=== PATIENT | female | born 2005 | race American Indian/Alaskan Native ===

== ENCOUNTER 2024-11-06 01:31 | Emergency (ER) | payer MEDICAID, SELFPAY ==
[2024-11-06 01:47] VITALS: BP 125/77; PULSE 88; RESP 19; TEMP 37.1; O2SAT 98
[2024-11-06] MEDS: DiphenhydrAMINE 25 MG CAPSULE 50 MG PO (02:27)
--- NOTE | 2024-11-06 05:40 | EDNOTE_ITS ---
ED Skin Abcess FB-RME/HPI General Chief complaint: Skin/Abscess/Foreign Body Stated complaint: INSECT BITE RIGHT ARM Time Seen by Provider: 11/06/24 01:54 Arrival date/time: 11/06/24 01:31 19F with no significant PMH presents to ED with R elbow insect bite and itchiness. Patient denies SOB. Patient is and just wanted to be evaluated. Limitations: no limitations Related Data Home Medications ?Medication ?Instructions ?Recorded ?Confirmed No Known Home Medications 11/04/2305/21 Allergies Allergy/AdvReac Type Severity Reaction Status Date / Time No Known Allergies Allergy Verified 04/18/21 14:38 Review of Systems Review of Systems Systems Reviewed: All systems reviewed, normal except as documented Constitutional Constitutional: Reports system reviewed and no additional complaints, except as documented, Denies fever(s) and Denies headache(s) ENT Ears, Nose, Mouth, and Throat: Denies disequilibrium and Denies headache(s) Cardiovascular Cardiovascular: Reports system reviewed and no additional complaints, except as documented, Denies chest pain and Denies dyspnea Respiratory Respiratory: Reports system reviewed and no additional complaints, except as documented, Denies cough and Denies dyspnea Gastrointestinal Gastrointestinal: Reports system reviewed and no additional complaints, except as documented, Denies abdominal pain, Denies nausea and Denies vomiting Integumentary/Breasts Skin/Breast: Reports as per HPI, Reports pruritus and Reports rash Neurologic Neurologic: Reports system reviewed and no additional complaints, except as documented, Denies confusion, Denies disequilibrium and Denies headache(s) Psychiatric Psychiatric: Denies confusion Past Medical History Past Medical History CARDIAC: Negative Congestive Heart Failure RESPIRATORY: Negative Chronic Obstructive Pulmonary Disease (COPD) GENITOURINARY: Negative Renal Disease ENDOCRINE: Negative Diabetes Mellitus Type 1 or Diabetes Mellitus Type 2 Social History SMOKING STATUS: Never smoker ED Exam General Limitations: Present no limitations General appearance: Present alert and in no apparent distress Head Head exam: Present atraumatic Eye Eye exam: Present normal appearance, PERRL and EOMI ENT ENT exam: Present normal exam, normal oropharynx and mucous membranes moist Neck Neck exam: Present normal inspection, full ROM and trachea midline Chest Chest inspection: Present normal inspection and symmetric chest wall rise Respiratory Respiratory exam: Present normal lung sounds bilaterally Cardiovascular Cardiovascular exam: Present regular rate, normal rhythm and normal heart sounds Abdominal Exam Abdominal exam: Present soft and normal bowel sounds Extremities Exam Extremities exam: Present full ROM Expanded Upper Extremity Exam Elbow exam: Present full ROM and erythema (2 cm on R side around insect bite alma) Back Exam Back exam: Present normal inspection and full ROM Neurological Exam Neurological exam: Present alert, oriented X3 and CN II-XII intact Psychiatric Psychiatric exam: Present normal affect and normal mood Skin Skin exam: Present warm, dry, intact and normal color Course Quality Measures none Orders Category Date Time Status DiphenhydrAMINE [Benadryl] Med 11/06/24 01:55 Discontinued 50 mg PO X1 ONE Vital Signs Vital signs: Vital Signs Temperature 98.7 F 11/06/24 01:47 Pulse Rate 88 11/06/24 01:47 Respiratory Rate 19 11/06/24 01:47 Blood Pressure 125/77 11/06/24 01:47 Pulse Oximetry (%) 98 11/06/24 01:47 Oxygen Delivery Method Room Air 11/06/24 01:47 O2 at 98% on RA and WNLs Skin / Abscess / Foreign Body MDM Narrative MDM Narrative:: 19F with no significant PMH presents to ED with R elbow insect bite and itchiness. Patient denies SOB. Patient is and just wanted to be evaluated. Physical exam reveals 2 cm area or redness and swelling around bite alma on R elbow. Clear lungs. Patient is afebrile, calm, and alert. Meds and phone counselor given. Patient data External records reviewed:: [facility] previous records Clinical information provided by:: patient Social determinants that could affect healthcare access:: none Patient has the following chronic illnesses:: none How is presenting disease/condition affected by chronic disease/condition?: no chronic disease Evaluation data The following diagnostics were reviewed and interpreted by me:: other (specify) (none) Lab and/or radiology exams considered but not ordered:: not ordered Interpretation Summary: n/a Medications / Prescriptions Medications or Prescriptions considered but not ordered:: ordered Medication administrations:: Medication Administration History Discontinued Medications Diphenhydramine HCl (Diphenhydramine 25 Mg Capsule) 50 mg PO X1 ONE Stop: 11/06/24 01:56 Last Admin: 11/06/24 02:27 Dose: 50 mg Documented By: CVL above Consultations Consultation(s) initiated? (list below): No Diagnosis Skin/Abscess Differential Diagnosis: abscess of skin or subcutaneous tissue, viral exanthem, dermatophytosis, urticaria, herpes zoster, allergic reaction to drug, cellulitis, eczema, insect bites, impetigo and contact dermatitis Most likely diagnosis given after review of the tests above:: insect bite Admission Indicated Admission indicated?: not indicated Admission Request Was there a request for admission?: No Disposition Plan Disposition Plan: Discharge Discharge Attestation Discharge Attestation: The patient and all family members were given an opportunity to ask questions and understood the discharge instructions. Discharge instructions specifically effects, indications for sooner follow up or return to the emergency department, and the expected course of current diagnosis. Patient condition: Stable Discharge Plan Plan Patient Disposition: HOME (Self Care) Disposition Comment: Stable Prescriptions/Referrals Prescriptions/Med Rec: No Action No Known Home Medications Problem List Clinical Impression: Insect bites Patient/Caregiver Discharge Instructions Education Materials: ED Insect Bite Additional Instructions: Please follow-up with PCP within 24-48 hours and return immediately if symptoms worsen. Print Language: Icelandic Stand Alone Forms: Patient Portal Info Letter NAVNEET/SOHAIL Supervising Physician NAVNEET/SOHAIL Supervising Physician: Dr. Lane
== END 2024-11-06 02:30 | disposition home or self-care (01) ==
LOC: SERX 04:38
PROVIDERS: Emergency Provider Emergency Medicine; PCP Physician Assistant
DX: O9A.219 Injury, poisoning and certain other consequences of external causes complicating pregnancy, unspecified trimester (principal); S50.361A Insect bite (nonvenomous) of right elbow, initial encounter; W57.XXXA Bitten or stung by nonvenomous insect and other nonvenomous arthropods, initial encounter
CPT/HCPCS: 99282; A9270

== ENCOUNTER 2024-12-01 23:17 | Emergency (ER) | payer MEDICAID, SELFPAY ==
[2024-12-01 23:19] VITALS: BMI 35.5
[2024-12-01 23:47] VITALS: BP 128/83; PULSE 80; RESP 16; TEMP 36.7; O2SAT 99
--- NOTE | 2024-12-02 | XR_ITS ---
Examination: Complete OB ultrasound, less than 14 weeks, transabdominal Date and time of exam: December 02, 2024 0114 hours INDICATIONS: Months of vaginal bleeding today Technique: Obstetrical ultrasound images less than 14 weeks performed via transabdominal imaging Findings: A normal shaped single intrauterine gestation is present in the uterus. pole 1.6 cm corresponds to 8 weeks 0 days gestational age. Cardiac motion 176 BPM Ultrasonographic survey of visible and placental structures unremarkable. Amniotic fluid volume appears appropriate for this estimated gestational age. Right ovary 3.8 cm arterial flow Left ovary obscured by bowel gas IMPRESSION: Viable intra uterine gestation 8 weeks 0 days.
--- NOTE | 2024-12-02 00:08 | EDNOTE_ITS ---
ED OB Contraction Preg RMI/HPI General Chief complaint: Vaginal Bleeding Stated complaint: VAGINAL BLEEDING AND , LMP 09/26/24 Time Seen by Provider: 12/01/24 23:35 Arrival date/time: 12/01/24 23:17 Limitations: no limitations RME / HPI RME / HPI Narrative: 19-year-old female with no reported past medical history presents for evaluation of vaginal bleeding x 1 hour. Patient describes it as bright red blood that covered her toilet paper when she went to the bathroom. Patient reports onset of sharp, suprapubic cramping x 3-hour prior to arrival. Denies chest pain, nausea, vomiting, dysuria, shortness of breath, fever. Patient reports x 2 positive home test and last LNMP 09/26/2024. A1. Consistency: intermittent Related Data Home Medications ?Medication ?Instructions ?Recorded ?Confirmed No Known Home Medications 11/04/2311/26 Allergies Allergy/AdvReac Type Severity Reaction Status Date / Time No Known Allergies Allergy Verified 12/10/24 13:36 Review of Systems Constitutional Constitutional: Denies body ache(s), Denies chills, Denies fever(s) and Denies headache(s) Eyes Eyes: Denies blurry vision and Denies change in vision ENT Ears, Nose, Mouth, and Throat: Denies dizziness, Denies headache(s) and Denies neck pain Cardiovascular Cardiovascular: Denies chest pain, Denies dyspnea, Denies irregular heart rhythm, Denies leg edema and Denies palpitations Respiratory Respiratory: Denies cough, Denies dyspnea and Denies hemoptysis Gastrointestinal Gastrointestinal: Denies abdominal pain, Denies change in stool character, Denies cramping, Reports nausea and Denies vomiting Genitourinary Genitourinary: Reports abnormal vaginal bleeding, Denies dysuria, Reports hemat uria and Denies vaginal discharge Musculoskeletal Musculoskeletal: Denies back pain, Denies neck pain, Denies numbness, Denies stiffness and Denies tingling Integumentary/Breasts Skin/Breast: Denies lesions and Denies rash Neurologic Neurologic: Denies dizziness, Denies headache(s), Denies numbness and Denies tingling Endocrine Endocrine: Denies palpitations Past Medical History Past Medical History NEUROLOGIC: Negative Cerebrovascular Accident, Transient Ischemic Attacks (TIA), Dementia, Alzheimer's Disease or Seizures CARDIAC: Negative Myocardial Infarction, Congestive Heart Failure or Hypertension RESPIRATORY: Negative Chronic Obstructive Pulmonary Disease (COPD), Asthma, Bronchitis, Emphysema, Pneumonia, Cough, Sputum Production, Wheezing, Chest Deformities, Smoking, Smoking Cessation Counseling, Smoking Exposure or Tobacco Use GASTROINTESTINAL: Negative Liver Cancer, Hepatitis, Cirrhosis, Pancreatic Cancer, Pancreatitis, Celiac Disease, Gall Bladder Disease, Crohn's Disease, Obstructive Bowel or Hiatal Hernia GENITOURINARY: Negative Renal Disease, Kidney Stones, Polycystic Kidney Disease, Neurogenic Bladder or Inguinal Hernia REPRODUCTIVE: Positive Previous Pregnancies; Negative Genital Herpes MUSCULOSKELETAL: Negative Muscular Dystrophy, Myasthenia Gravis, Marfan's Syndrome, Bone Cancer or Gout ENT: Negative Cataracts, Glaucoma, Blind or Retinal Detachment ENDOCRINE: Negative Diabetes Mellitus Type 1, Diabetes Mellitus Type 2 or Syndrome of Inappropriate Antidiuretic Hormone (SIADH) HEMATOLOGIC: Negative Anemia, Leukemia or Hemophilia PSYCHO/SOCIAL: Negative Schizophrenia, Recreational Drug Use, Depression, Anxiety or Behavior Problems OTHER HISTORY: Negative Hospitalization, Autoimmune Disease, Down Syndrome, Autism, Chicken Pox, Hepatitis A, Hepatitis B, Hepatitis C or Cancer Social History SMOKING STATUS: Never smoker SECOND HAND EXPOSURE: No ED Exam General Limitations: Present no limitations General appearance: Present alert and in no apparent distress Head Head exam: Present atraumatic and normocephalic Eye Eye exam: Present normal appearance and EOMI ENT ENT exam: Present normal exam and normal oropharynx Neck Neck exam: Present normal inspection and full ROM Chest Chest inspection: Present normal inspection and symmetric chest wall rise Respiratory Respiratory exam: Present normal lung sounds bilaterally; Absent respiratory distress or wheezes Cardiovascular Cardiovascular exam: Present regular rate and JVD Abdominal Exam Abdominal exam: Present soft; Absent distention or tenderness External exam: Present normal external exam Speculum exam: Present normal speculum exam and other (Cervical os is closed. No gross blood in vaginal canal.); Absent vaginal discharge, cervical discharge, vaginal bleeding or tissue Extremities Exam Extremities exam: Present normal inspection and full ROM Back Exam Back exam: Present normal inspection and full ROM; Absent CVA tenderness (R) or CVA tenderness (L) Neurological Exam Neurological exam: Present alert Psychiatric Psychiatric exam: Present normal affect Skin Skin exam: Present warm, dry and normal color Course Quality Measures none Orders Category Date Time Status Pelvic Exam X1 Care 12/02/24 02:32 Completed US OB <= 14 weeks fetus Stat Exams 12/02/24 00:00 Completed ABO/RH Type Stat Lab 12/01/24 23:58 Completed Beta HCG,Quantitative Stat Lab 12/01/24 23:58 Completed CBC Stat Lab 12/01/24 23:58 Completed CMP [Comprehensive Metabolic Panel] Stat Lab 12/01/24 23:58 Completed HCG,Qualitative Serum Stat Lab 12/02/24 00:25 Completed UA [Urinalysis] Stat Lab 12/02/24 00:22 Completed Acetaminophen Tab [Tylenol Tab] Med 12/01/24 23:58 Discontinued 325 mg PO X1 ONE Vital Signs Vital signs: Vital Signs Temperature 98.0 F 12/01/24 23:47 Pulse Rate 80 12/01/24 23:47 Respiratory Rate 16 12/01/24 23:47 Blood Pressure 128/83 12/01/24 23:47 Pulse Oximetry (%) 99 12/01/24 23:47 Oxygen Delivery Method Room Air 12/01/24 23:47 Pulse ox 99% on room air, within normal limits. Vaginal Bleeding MDM Narrative MDM Narrative: Very pleasant, nontoxic-appearing 19-year-old female presented for vaginal bleeding in the setting of positive home test x 1 month ago. Vital signs reassuring. Workup today showed live intrauterine with appropriate beta-hCG therefore lower concern for ectopic . Patient h emoglobin slightly below normal but not within range requiring emergent blood transfusion at this time. Pelvic exam performed by myself with nursing staff present for waiter/waitress formal showed closed cervical os therefore less concern for cervical insufficiency at this time. Patient afebrile and nontoxic-appearing therefore less concern for septic miscarriage at this time. Patient ultimately discharged with plan for close follow-up with OB within the week. Return precautions were provided. I discussed extensively the results of today's workup with the patient and her partner. Patient data External records reviewed:: [facility] previous records Clinical information provided by:: patient and spouse Social determinants that could affect healthcare access:: none Patient has the following chronic illnesses:: None reported. How is presenting disease/condition affected by chronic disease/condition?: no chronic disease Evaluation data The following diagnostics were reviewed and interpreted by me:: lab results and radiology exam(s) Lab and/or radiology exams considered but not ordered:: Considered not ordered. Interpretation Summary: Transvaginal ultrasound shows live intrauterine with heart rate of 176. Beta-hCG today greater than 10,000 therefore less concern for ectopic . UA showed no signs of infection pointing away from UTI. Patient mildly anemic without evidence of gross hemorrhage requiring blood transfusion at this time. No gross electrolyte abnormality or evidence of endorgan damage. Medications / Prescriptions Medications or Prescriptions considered but not ordered:: Rx given. Medication administrations:: Medication Administration History Discontinued Medications Acetaminophen (Acetaminophen 325 Mg Tablet) 325 mg PO X1 ONE Stop: 12/01/24 23:59 Last Admin: 12/02/24 00:13 Dose: 325 mg Documented By: LAUREN Rx given. Consultations Consultation(s) initiated? (list below): No Diagnosis Vaginal Bleeding Differential Diagnosis: missed , threatened , dysfunctional uterine bleeding, menometrorrhagia, incomplete , ectopic without intrauterine and vaginal bleeding Most likely diagnosis given after review of the tests above:: Threatened . Admission Indicated Admission indicated?: not indicated Admission Request Was there a request for admission?: No Disposition Plan Disposition Plan: Discharge Discharge Attestation Discharge Attestation: The patient and all family members were given an opportunity to ask questions and understood the discharge instructions. Discharge instructions specifically effects, indications for sooner follow up or return to the emergency department, and the expected course of current diagnosis. Patient condition: Stable Discharge Plan Plan Patient Disposition: HOME (Self Care) Disposition Comment: stable Prescriptions/Referrals Prescriptions/Med Rec: No Action No Known Home Medications Referrals: Josef Villarreal PA-C [Primary Care Provider] - In 1 week Problem List Clinical Impression: Vaginal bleeding, Threatened Impression comment: Follow-up with OB within the next 24 to 48 hours for reevaluation. Beta-hCG today greater than 10,000. Live IUP on ultrasound measuring 8weeks 0days. Take Tylenol as needed for suprapubic cramping. Return to the ED if your symptoms worsen or change. Patient/Caregiver Discharge Instructions Education Materials: ED Abdominal Pain, Early , ED Possible Miscarriage ... Print Language: Hungarian Stand Alone Forms: Kiki Award Info., Patient Portal Info Letter NAVNEET/SOHAIL Supervising Physician NAVNEET/SOHAIL Supervising Physician: Dr. Mackay
[2024-12-02] MEDS: ACETAMINOPHEN 325 MG TABLET PO (00:13)
[2024-12-02 00:46] LABS: Collection Type, Urine Clean Catch; WBC,Urine 0 /hpf (0-5)
[2024-12-02 00:47] LABS: Basophils # (Auto) 0.1 Thou/mm3 (0.0-0.2); Basophils % (Auto) 0 % (0-2.5); Eosinophils # (Auto) 0.2 Thou/mm3 (0.0-0.5); Eosinophils % (Auto) 1 % (0-10); Hematocrit 35.4 % (36.0-46.0); Hemoglobin 11.9 g/dL (12.0-16.0); Immature Granulocytes % (Auto) 0 % (0-0); Immature Granulocytes Auto 0.03 Thou/mm3 (0.00-0.00); Lymphocytes # (Auto) 2.5 Thou/mm3 (1.0-4.8); Lymphocytes % (Auto) 22 % (10-50); Mean Corpuscular HGB Conc 33.6 g/dl (31.0-37.0); Mean Corpuscular Hemoglobin 26.3 pg (25.0-35.0); Mean Corpuscular Volume 78 fL (80-100); Monocytes # (Auto) 0.8 Thou/mm3 (0.0-0.8); Monocytes % (Auto) 7 % (0-12); Neutrophils # (Auto) 7.8 Thou/mm3 (1.8-7.7); Neutrophils % (Auto) 69 % (37-80); Nucleated Red Blood Cell % 0 /100 WBC (0); Platelet Count 415 Thou/mm3 (140-440); RDW Standard Deviation 39.1 fL (36.4-46.3); Red Blood Count 4.52 Miln/mm3 (4.00-5.20); White Blood Count 11.3 Thou/mm3 (4.5-11.0)
[2024-12-02 01:16] LABS: Bacteria,Urine Rare; Bilirubin,Urine Negative (Negative); Blood,Urine Trace (Negative); Clarity,Urine Clear (Clear/Hazy); Color,Urine Lt-Yellow (Lt Yel-Yel); Glucose, Urine Negative (Negative); Ketones,Urine Negative (Negative); Leukocyte Esterase,Urine Negative (Negative); Nitrite,Urine Negative (Negative); PH,Urine 6.5 (5.0-7.0); Protein,Urine Negative (Neg - Trace); RBC,Urine 3 /hpf (0-3); Specific Gravity,Urine 1.016 (1.001-1.035); Squamous Epithelial Cell,Urine 2 /hpf (0-5); Urobilinogen,Urine Negative mg/dL (0.0-1.0)
[2024-12-02 01:24] LABS: Alanine Aminotransferase 15 U/L (10-49); Albumin/Globulin Ratio 1.3 (1.2-2.2); Alkaline Phosphatase 76 U/L (46-116); Anion Gap 8 (7-16); Aspartate Amino Transferase 18 U/L (0-34); BUN/Creatinine Ratio 10 Ratio (12-20); Bilirubin,Total 0.2 mg/dL (0.3-1.2); Blood Urea Nitrogen 6 mg/dL (9-23); Calcium 9.4 mg/dL (8.3-10.6); Calcium (Corrected) 9.4 mg/dL (8.5-10.1); Carbon Dioxide 25.4 mMol/L (20.0-31.0); Chloride 105 mMol/L (98-107); Creatinine (Component) 0.6 mg/dL (0.6-1.3); Estimated Creatinine Clearance 178.3 mL/min (>60); Globulin 3.2 gm/dL (2.3-3.5); Glucose 129 mg/dL (74-106); Osmolality,Calculated 275 (275-295); Potassium 3.6 mMol/L (3.4-5.1); Sodium 138 mMol/L (136-145); Total Protein 7.2 gm/dL (5.7-8.2); eGFR > 60 See Note
[2024-12-02 01:40] LABS: HCG,Qualitative Serum Positive
[2024-12-02 01:51] LABS: Beta HCG,Quantitative > 10000 mIU/mL (<5.0)
[2024-12-02 01:56] VITALS: BP 122/81; PULSE 72; RESP 16; TEMP 37.2; O2SAT 100
--- NOTE | 2024-12-02 02:36 | PRELIM_ITS ---
Obstetric ultrasound (transabdominal ) with Doppler and wave Doppler spectral analysis. December 02, 2024 0114 hours Clinical history: vaginal bleed Technique: Real-time ultrasound was performed using Duplex scanning including arterial inflow, venous outflow, color and spectral Doppler analysis of both ovaries. Comparison: None Findings: There is an intrauterine gestation with a single live fetus of mean gestational age 8 weeks and 0 day (CRL= 1.6 cm). cardiac activity is present at heart rate of 176 beats per minute. The yolk sac measures 0.4 cm. The uterus measures 10.8 x 6.0 x 9.3 cm. The right ovary measures 3.8 x 2.0 x 2.9 cm and is unremarkable. Normal blood flow in the right ovary with normal wave Doppler spectral analysis. The left ovary was not visualized There is no free fluid in the pelvis. Impression: Intrauterine gestation with a single live fetus of mean gestational age 8 weeks and 0 day. Report Electronically Signed By: Markus Green 12/02/2024 2:36:34 AM [EST]
[2024-12-02 03:22] VITALS: BP 115/51; PULSE 81; RESP 17; TEMP 36.6; O2SAT 98
== END 2024-12-02 03:23 | disposition home or self-care (01) ==
PROVIDERS: Physician Assistant; Emergency Provider Emergency Medicine; PCP Physician Assistant
DX: O20.0 Threatened abortion (principal); Z3A.08 8 weeks gestation of pregnancy
CPT/HCPCS: 36415; 76801; 80053; 81001; 84702; 84703; 85025; 86900; 86901; 99284; A9270

== ENCOUNTER 2025-01-08 10:25 | Outpatient (AMB) | payer MEDICAID, SELFPAY ==
--- NOTE | 2025-01-08 10:42 | OBCLNT_ITS ---
Vital Signs 01/08/25 10:52 Height 1.65 m Height Method Stated Weight 122.016 kg Weight Measurement Method Standing Scale BMI 44.7 BP 120/81 Blood Pressure Source Automatic Cuff Blood Pressure Location Left Upper Arm Position Sitting Respiration 81 H Pulse 16 L Pulse Source Monitor Temp 99.2 F Temp Source Oral Pulse Oximetry (%) 98 Oxygen Delivery Method Room Air Allergies/Home Meds Allergies & Medications Allergies No Known Allergies Allergy (Verified 01/08/25 10:53) Medication Reconciliation No Known Home Medications 11/04/23 [History Confirmed 01/08/25] Intake Visit Data Collection New Patient or Established: Established Patient (seen at [facility] within 3 years) Reason for Visit:: - Routine visit at 33 weeks and 2 days gestation Seen by Clinical Staff ONLY (RN/MA): No Cocktail Server Required: No Do You Feel Safe at Home: Yes Authorities Contacted: N/A PCP or OBGYN visit in last 3 months: Yes Hx Now: Yes Are you currently on any form of Control: No Pain Present Currently: No Pain Scale Used: Sosa-Pichardo/Numerical Pain scale:: 0 Smoking Status Smoking Status: Never smoker Questionnaires Covid-19 Vaccine Questionnaire Has patient been vacinated for Covid-19 Have you been vacinated for Covid-19: No PHQ-9 PHQ-2 Over the last 2 weeks, how often have you been bothered by any of the following problems? 1. Little interest or pleasure in doing things: not at all 2. Feeling down, depressed, or hopeless: not at all Total score: 0 PHQ-9 3. Trouble falling or staying asleep, or sleeping too much: Not at all 4. Feeling tired or having little energy: Not at all 5. Poor appetite or overeating: Not at all 6. Feeling bad about yourself - or that you are a failure or have let yourself or your family down: Not at all 7. Trouble concentrating on things, such as reading the newspaper or watching television: Not at all 8. Moving or speaking so slowly that other people could have noticed? - Or the opposite - being so fidgety or restless that you have been moving around a lot more than usual: not at all 9. Thoughts that you would be better off or of hurting yourself in some way: Not at all Total score: 0 Source: Developed by Drs. Levi Pickering, Laly Dasilva, Jeffry Alicia and colleagues, with an educational lucrecia from [employer]. 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 - Patient transferred care from Dr. Amaro to the current practice. - Finalized due date is February 26, based on maternal medicine ultrasound. 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 - Reports normal movement. No contractions/ LOF/VB, reports good FM No HOUSTON/VC/RUQ/Epig pain Care OB Visit Log OB Flowsheet Initial Weight: Not Recorded Date -?-?-?-?-?-?-?-?-?-?-?-?- EGA Weight BP Alb Glu CTX Pres Fundal ht FHR Mov Dilation Station Effacement Hx Notes Visit Note 12/10/24 -?-?-?-?-?-?-?-?-?-?-?-?- 10w 5d 123.094 kg 113/62 175 Mara Stockton, at 10 weeks 5 days gestation, presenting for initial visit with history of recent spotting and cramping. - Continue vitamins - Order comprehensive lab panel - Offer genetic screening for aneuploidy and sex determination - Patient expressed interest in geneti c screening - Schedule follow-up appointment in 4 we eks - Ultrasound images to be provided at ne xt visit - Clinical Data Management Director on risks of vaping during preg elen and recommend cessation - Obtain detailed cardiac history and re cords of heart surgery - Consider cardiology consultation for p regnancy management if indicated based on cardiac history 01/08/25 -?-?-?-?-?-?-?-?-?-?-?-?- 14w 6d 122.016 kg 120/81 Kelsy Stewart, at 33w2d, presents for routine care. Transferred from Dr. Amaro. Due date confirmed as 02/26/2025 by MFM ultrasound. Reports good movement. 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 No CTX/LOF/VB. heart rate is 146 bpm. Plan: Repeat scheduled for 02/19/2025 at 12:30 PM Growth ultrasound with MFM on 01/31/2025 Follow-up in 2 weeks Begin weekly visits thereafter Reviewed signs of labor and when to present to L&D ROSIE Calculator Estimated Delivery Date Method Current WG Current Estimate 07/03/25 LMP (Certain) 16w 4d Other Estimates 07/06/25 Ultrasound #1 16w 1d Exam General General Appearance: alert, in no apparent distress and healthy appearing Head Head exam: atraumatic Neck Neck exam: Present normal inspection and trachea midline Chest Chest inspection: Present normal inspection and symmetric chest wall rise External exam: Present normal external exam; Absent tenderness Neuro Neurological exam: Present oriented X3 Psych Psychiatric exam: Present normal affect and normal mood Office Procedures OB Clinic LOC & Office Proc's Nursing/Assessment Patient Status: Established Patient OB Clinic Nursing Assessment: Medication Reconciliation, Update PMH in EMR and Vital Signs OB Clinic Coordination of Care: Complex Care and Chronic Disease 1-5, Consent,records obtained, informed consent, Education Simp Pt/Fam, Results/Orders obtained and Staff clarify orders Special Needs: Heart tones Established Patient Charge Established Patient Point Assignment: 120 Established Patient Point Charge: EP Level 4 (120-155) Bedside Ultrasounds US Transabdominal <14 weeks at bedside: Yes Assessment & Plan Diagnosis / Problem List (1) Supervision of high risk , unspecified, first trimester: Status: Acute (2) Obesity affecting in first trimester: Status: Acute Plan Problem List - , 33 weeks and 2 days - Cystic fibrosis carrier status Assessment - 1 para 1 at 33 weeks and 2 days gestation - Scheduled for repeat on February 19 at 12:30 PM - Cystic fibrosis carrier status confirmed for patient, father of child tested negative - heart rate 146 bpm, noted as normal Plan - Repeat scheduled for February 19 at 12:30 PM - Growth ultrasound with maternal medicine on January 31 - Follow-up appointment in 2 weeks - Weekly appointments to begin after the next follow-up Educated the patient on labor signs, including regular contractions, lower back pain, and changes in vaginal discharge. Advised avoiding heavy lifting and getting adequate rest. Instructed to contact the office immediately if any signs occur. Discussed the importance of a balanced diet rich in folic acid, iron, and calcium, and provided a list of recommended and to-avoid foods. Emphasized avoiding high-sugar foods to reduce gestational diabetes risk. Encouraged hydration and frequent, small meals for energy..
[2025-01-08 10:52] VITALS: BP 120/81; PULSE 16; RESP 81; TEMP 37.3; O2SAT 98; BMI 44.7
== END 2025-01-08 11:10 | disposition home or self-care (01) ==
LOC: HODSOBC 10:25
PROVIDERS: PCP Physician Assistant; Referring Provider Physician Assistant; Supervising Provider Obstetrics & Gynecology; Visit Provider Obstetrics & Gynecology
DX: O09.623 Supervision of young multigravida, third trimester (principal); O09.293 Supervision of pregnancy with other poor reproductive or obstetric history, third trimester; O09.893 Supervision of other high risk pregnancies, third trimester; Z3A.33 33 weeks gestation of pregnancy; O34.219 Maternal care for unspecified type scar from previous cesarean delivery; O99.213 Obesity complicating pregnancy, third trimester; O99.891 Other specified diseases and conditions complicating pregnancy; Z14.1 Cystic fibrosis carrier
CPT/HCPCS: 76801; 99214; G0463

== ENCOUNTER 2025-02-07 11:43 | Outpatient (AMB) | payer MEDICAID, SELFPAY ==
[2025-02-07 12:06] VITALS: BP 121/82; PULSE 78; RESP 18; TEMP 36.2; O2SAT 98; BMI 45.4
--- NOTE | 2025-02-07 12:06 | OBCLNT_ITS ---
Vital Signs 02/07/25 12:06 Height 1.65 m Height Method Stated Weight 123.831 kg Weight Measurement Method Standing Scale BMI 45.4 BP 121/82 Blood Pressure Source Automatic Cuff Blood Pressure Location Left Upper Arm Position Sitting Respiration 18 Pulse 78 Pulse Source Monitor Temp 97.2 F Temp Source Oral Pulse Oximetry (%) 98 Oxygen Delivery Method Room Air Allergies/Home Meds Allergies & Medications Allergies No Known Allergies Allergy (Verified 02/07/25 12:16) Medication Reconciliation No Known Home Medications 11/04/23 [History Confirmed 02/07/25] Intake Visit Data Collection New Patient or Established: Established Patient (seen at [facility] within 3 years) Reason for Visit:: OBC Seen by Clinical Staff ONLY (RN/MA): No M1 Armor Crewman Required: No Do You Feel Safe at Home: Yes Authorities Contacted: N/A PCP or OBGYN visit in last 3 months: Yes Date of Last PCP or OBGYN visit: 02/07/25 Hx Now: No Are you currently on any form of Control: No Pain Present Currently: No Pain Scale Used: Sosa-Pichardo/Numerical Pain scale:: 0 Smoking Status Smoking Status: Never smoker Questionnaires Covid-19 Vaccine Questionnaire Has patient been vacinated for Covid-19 Have you been vacinated for Covid-19: Yes PHQ-9 PHQ-2 Over the last 2 weeks, how often have you been bothered by any of the following problems? 1. Little interest or pleasure in doing things: not at all 2. Feeling down, depressed, or hopeless: not at all Total score: 0 PHQ-9 3. Trouble falling or staying asleep, or sleeping too much: Not at all 4. Feeling tired or having little energy: Not at all 5. Poor appetite or overeating: Not at all 6. Feeling bad about yourself - or that you are a failure or have let yourself or your family down: Not at all 7. Trouble concentrating on things, such as reading the newspaper or watching television: Not at all 8. Moving or speaking so slowly that other people could have noticed? - Or the opposite - being so fidgety or restless that you have been moving around a lot more than usual: not at all 9. Thoughts that you would be better off or of hurting yourself in some way: Not at all Total score: 0 If you checked off any problems, how difficult have these problems made it for you to do your work, take care of things at home, or get along with other people?: not difficult at all Source: Developed by Drs. Levi Pickering, Laly Dasilva, Jeffry Alicia and colleagues, with an educational lucrecia from [employer]. 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 No contractions, LOF, VB and reports good FM. Denies HOUSTON, VC, and epigastric pain. - Mara Stokcton is a female, Para 0010, at 19 weeks and 1 day gestation, presenting for routine care. - Estimated due date: July 03, 2025, based on last menstrual period of September 26, 2024. - Patient reports feeling a little bit of movement. - She denies experiencing anemia or related issues. - Patient confirms adherence to vitamin regimen. - Recent healthcare interactions: - Maternal appointment on January 31, 2025 - Upcoming ultrasound scheduled for February 26, 2025 Review of Systems Review of Systems Systems Reviewed: All systems reviewed, normal except as documented Care OB Visit Log OB Flowsheet Initial Weight: Not Recorded Date -?-?-?-?-?-?-?-?-?-?-?-?- EGA Weight BP Alb Glu CTX Pres Fundal ht FHR Mov Dilation Station Effacement Hx Notes Visit Note 12/10/24 -?-?-?-?-?-?-?-?-?-?-?-?- 10w 5d 123.094 kg 113/62 175 Mara Stockton, at 10 weeks 5 days gestation, presenting for initial visit with history of recent spotting and cramping. - Continue vitamins - Order comprehensive lab panel - Offer genetic screening for aneuploidy and sex determination - Patient expressed interest in geneti c screening - Schedule follow-up appointment in 4 we eks - Ultrasound images to be provided at ne xt visit - Willower on risks of vaping during preg elen and recommend cessation - Obtain detailed cardiac history and re cords of heart surgery - Consider cardiology consultation for p regnancy management if indicated based on cardiac history 01/08/25 -?-?-?-?-?-?-?-?-?-?-?-?- 14w 6d 122.016 kg 120/81 Kelsy Stewart, at 33w2d, presents for routine care. Transferred from Dr. Amaro. Due date confirmed as 02/26/2025 by [facility] ultrasound. Reports good movement. 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 No CTX/LOF/VB. heart rate is 146 bpm. Plan: Repeat scheduled for 02/19/2025 at 12:30 PM Growth ultrasound with MFM on 01/31/2025 Follow-up in 2 weeks Begin weekly visits thereafter Reviewed signs of labor and when to present to L&D 02/07/25 -?-?-?-?-?-?-?-?-?-?-?-?- 19w 1d 123.831 kg 121/82 at 19w1d with ROSIE 07/03/25 (LMP 09/26/24), presents for routine care. No CTX/LOF/VB. Reports minimal FM, denies HOUSTON/VC/epigastric pain. Taking vitamins, no issues with anemia. Recent [facility] visit on 01/31/25 completed. Upcoming anatomy US scheduled for 02/26/25. FHT: 148 bpm. Plan: Proceed with 02/26 anatomy scan at [facility]. Glucose test to be ordered. No follow-up until after ultrasound unless patient has new concerns. Reinforced FM monitoring and reviewed preeclampsia and labor precautions. ROSIE Calculator Estimated Delivery Date Method Current WG Current Estimate 07/03/25 LMP (Certain) 19w 6d Other Estimates 07/06/25 Ultrasound #1 19w 3d Exam General General Appearance: alert, in no apparent distress and healthy appearing Head Head exam: atraumatic Neck Neck exam: Present normal inspection and trachea midline Chest Chest inspection: Present normal inspection and symmetric chest wall rise External exam: Present normal external exam; Absent tenderness Neuro Neurological exam: Present oriented X3 Psych Psychiatric exam: Present normal affect and normal mood Office Procedures OB Clinic LOC & Office Proc's Nursing/Assessment Patient Status: Established Patient OB Clinic Nursing Assessment: Medication Reconciliation, Update PMH in EMR and Vital Signs OB Clinic Coordination of Care: Education Complex Pt/Fam, Consent,records obtained, informed consent, 4+ Authorizations needed, Lab and Imaging orders and Staff clarify orders Special Needs: Heart tones Established Patient Charge Established Patient Point Assignment: 135 Established Patient Point Charge: EP Level 4 (120-155) Assessment & Plan Diagnosis / Problem List (1) Supervision of high risk , unspecified, first trimester: Status: Acute (2) Obesity affecting in first trimester: Status: Acute Plan Problem List - , 19 weeks and 1 day Assessment 1 Para 0010 at 19 weeks and 1 day gestation presenting for routine care. Estimated due date is 07/03/2025 based on last menstrual period of 09/26/2024. Patient reports feeling movement. heart rate auscultated at 148 bpm, which is within normal range. Maternal appointment completed on January 31. No reported issues with nausea or anomagnesia. Patient is taking vitamins as recommended. Plan - Attend ultrasound appointment at [facility] on February 26 - Complete glucose test (order to be provided) - Follow up after February 26 ultrasound appointment - No 4-week follow-up appointment needed unless patient has concerns or questions 1. Progress Reviewed gestational age, growth, and heart rate. Planned frequent visits (every 2 weeks until 36 weeks, then weekly). 2. Instructed patient to monitor movements and report decreases immediately. 3. Testing Counseled on routine third-trimester labs per guidelines. Discussed potential need for ultrasound or monitoring based on risk factors. 4. Preeclampsia Precaution Educated on preeclampsia signs: severe headache, vision changes, right upper quadrant pain, sudden swelling. Advised urgent reporting of symptoms and discussed blood pressure monitoring if high risk. 5. Labor Precautions Reviewed labor signs: regular contractions, pelvic pressure, back pain, bleeding, or fluid leakage. Instructed to seek immediate care for these symptoms. 6. Lifestyle and Delivery Preparation Reinforced vitamins, nutrition, and safe activity. Discussed plan, pain management, and . Advised on labor preparation (e.g., hospital bag) and expectations. 7. Psychosocial Support Assessed emotional well-being and offered resources for mental health or parenting support.
== END 2025-02-07 12:06 | disposition home or self-care (01) ==
LOC: HODSOBC 11:43
PROVIDERS: PCP Physician Assistant; Referring Provider Physician Assistant; Supervising Provider Obstetrics & Gynecology; Visit Provider Obstetrics & Gynecology
DX: O09.892 Supervision of other high risk pregnancies, second trimester (principal); O99.212 Obesity complicating pregnancy, second trimester; O09.292 Supervision of pregnancy with other poor reproductive or obstetric history, second trimester; O34.219 Maternal care for unspecified type scar from previous cesarean delivery; Z3A.19 19 weeks gestation of pregnancy
CPT/HCPCS: 99214; G0463

== ENCOUNTER 2025-03-12 10:11 | Outpatient (AMB) | payer MEDICAID, SELFPAY ==
--- NOTE | 2025-03-12 10:22 | OBCLNT_ITS ---
Vital Signs 03/12/25 10:23 Height 1.65 m Height Method Measured Weight 126.269 kg Weight Measurement Method Standing Scale BMI 46.3 BP 123/79 Blood Pressure Source Automatic Cuff Blood Pressure Location Right Upper Arm Position Sitting Respiration 17 Pulse 86 Pulse Source Monitor Temp 98.4 F Temp Source Temporal Artery Scan Pulse Oximetry (%) 96 Oxygen Delivery Method Room Air Allergies/Home Meds Allergies & Medications Allergies No Known Allergies Allergy (Verified 03/12/25 10:23) Medication Reconciliation sod chloride-sod bicarb-hyaluronate sod-aloe 0.9 % nasal spray gel (Nasogel) 1 applic intranasal Q6H PRN dry nasal passages 5 days #30 mL 03/12/25 [Rx] Intake Visit Data Collection New Patient or Established: Established Patient (seen at [facility] within 3 years) Reason for Visit:: OBC Consent obtained for Telemed Visit: No Seen by Clinical Staff ONLY (RN/MA): No 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 1. Little interest or pleasure in doing things: not at all PHQ-9 8. Moving or speaking so slowly that other people could have noticed? - Or the opposite - being so fidgety or restless that you have been moving around a lot more than usual: not at all Source: Developed by Drs. Levi Pickering, Laly Dasilva, Jeffry Alicia and colleagues, with an educational lucrecia from [employer]. 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 - Continue vitamins - Order comprehensive lab panel - Offer genetic screening for aneuploidy and sex determination - Patient expressed interest in geneti c screening - Schedule follow-up appointment in 4 we eks - Ultrasound images to be provided at ne xt visit - Farm Operator on risks of vaping during preg elen and recommend cessation - Obtain detailed cardiac history and re cords of infant heart surgery - Consider cardiology consultation for p regnancy management if indicated based on cardiac history 01/08/25 -?-?-?-?-?-?-?-?-?-?-?-?- 14w 6d 122.016 kg 120/81 Kelsy Stewart, at 33w2d, presents for routine care. Transferred from Dr. Amaro. Due date confirmed as 02/26/2025 by [facility] ultrasound. Reports good movement. 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 No CTX/LOF/VB. heart rate is 146 bpm. Plan: Repeat scheduled for 02/19/2025 at 12:30 PM Growth ultrasound with MFM on 01/31/2025 Follow-up in 2 weeks Begin weekly visits thereafter Reviewed signs of labor and when to present to L&D 02/07/25 -?-?-?-?-?-?-?-?-?-?-?-?- 19w 1d 123.831 kg 121/82 at 19w1d with ROSIE 07/03/25 (LMP 09/26/24), presents for routine care. No CTX/LOF/VB. Reports minimal FM, denies HOUSTON/VC/epigastric pain. Taking vitamins, no issues with anemia. Recent MFM visit on 01/31/25 completed. Upcoming anatomy US scheduled for 02/26/25. FHT: 148 bpm. Plan: Proceed with 02/26 anatomy scan at [facility]. Glucose test to be ordered. No follow-up until after ultrasound unless patient has new concerns. Reinforced FM monitoring and reviewed preeclampsia and labor precautions. 03/12/25 -?-?-?-?-?--?-?-?-?-?-?-?- 23w 6d 126.269 kg 123/79 absent unknown 34 130 active , 23w6d No CTX/LOF/VB, good FM. Reports 5 episod es of epistaxis over past 6 wks, associated with lightheadedness. Exam shows dry nasal mucosa. MFM sono 02/26: normal anatomy, MVP 6.4cm, CL 4.97cm, posterior placenta. FHR 128?130. Plan: Start nasal spray q4h. Repeat GTT. F/u in 4 wks. If epistaxis persists >2?3 days, refer to PCP or ENT ROSIE Calculator Estimated Delivery Date Method Current WG Current Estimate 07/03/25 LMP (Certain) 23w 6d Other Estimates 07/06/25 Ultrasound #1 23w 3d Specific Issue/Plans - Ultrasound (02/26/2025): - Single intrauterine gestation - Largest vertical pocket: 6.4 cm - Posterior placenta - Cervix length: 4.97 cm - Ovaries: normal - Head and neck: normal - Anatomy survey: within normal limits Office Procedures OB Clinic LOC & Office Proc's Nursing/Assessment Patient Status: Established Patient OB Clinic Nursing Assessment: Medication Reconciliation, Update PMH in EMR and Vital Signs OB Clinic Coordination of Care: Complex Care and Chronic Disease 1-5, Education Complex Pt/Fam, Consent,records obtained, informed consent, Education Simp Pt/Fam and 4+ Authorizations needed Special Needs: Heart tones Established Patient Charge Established Patient Point Assignment: 150 Established Patient Point Charge: EP Level 4 (120-155) Assessment & Plan Diagnosis / Problem List (1) Hemorrhage from nose: Status: Acute (2) Obesity affecting : Status: Acute
[2025-03-12 10:23] VITALS: BP 123/79; PULSE 86; RESP 17; TEMP 36.9; O2SAT 96; BMI 46.3
== END 2025-03-12 10:53 | disposition home or self-care (01) ==
LOC: HODSOBC 10:11
PROVIDERS: PCP Obstetrics & Gynecology; Referring Provider Obstetrics & Gynecology; Supervising Provider Obstetrics & Gynecology; Visit Provider Obstetrics & Gynecology
DX: O09.892 Supervision of other high risk pregnancies, second trimester (principal); O99.212 Obesity complicating pregnancy, second trimester; O99.891 Other specified diseases and conditions complicating pregnancy; R04.0 Epistaxis; Z3A.23 23 weeks gestation of pregnancy
CPT/HCPCS: 99214; G0463

== ENCOUNTER 2025-04-22 17:59 | Observation (INO) | payer MEDICAID, SELFPAY ==
[2025-04-22] VITALS (9 sets, daily range): BP systolic 117–133; BP diastolic 57–87; PULSE 72–86; RESP 16–98; TEMP 36.6; BMI 46.8
--- NOTE | 2025-04-22 19:12 | XR_ITS ---
Examination: Complete OB ultrasound greater than 14 weeks Date and time of exam: April 22, 2025, 1938 hours INDICATIONS: Vaginal bleeding today Findings: Viable intrauterine single fetus with single amniotic sac presentation cephalic Cardiac motion 140 BPM Placenta posterior grade 2 no abruption Umbilical cord insertion seen Amniotic fluid adequate Ovaries obscured by the fetus. Composite estimated gestational age based on BPD, head circumference, abdominal circumference, femur length is 29 weeks 2 days Estimated weight 1314 g. Survey of intracranial anatomy, spinal anatomy, abdominal anatomy, four-chamber heart performed with no abnormalities identified. Impression: Viable intrauterine gestation cephalic presentation.
[2025-04-22 19:36] LABS: Collection Type, Urine Clean Catch
[2025-04-22 19:53] LABS: Bacteria,Urine 2+; Bilirubin,Urine Negative (Negative); Blood,Urine Negative (Negative); Clarity,Urine Clear (Clear/Hazy); Color,Urine Lt-Yellow (Lt Yel-Yel); Glucose, Urine Negative (Negative); Ketones,Urine Negative (Negative); Leukocyte Esterase,Urine Negative (Negative); Nitrite,Urine Negative (Negative); PH,Urine 7.0 (5.0-7.0); Protein,Urine Negative (Neg - Trace); RBC,Urine 3 /hpf (0-3); Specific Gravity,Urine 1.011 (1.001-1.035); Squamous Epithelial Cell,Urine 4 /hpf (0-5); Urobilinogen,Urine Negative mg/dL (0.0-1.0); WBC,Urine 10 /hpf (0-5)
== END 2025-04-22 22:25 | disposition home or self-care (01) ==
PROVIDERS: Admitting Provider Obstetrics & Gynecology; Visit Provider Obstetrics & Gynecology
DX: O46.93 Antepartum hemorrhage, unspecified, third trimester (principal); Z3A.29 29 weeks gestation of pregnancy; O26.893 Other specified pregnancy related conditions, third trimester; M54.50 Low back pain, unspecified; R10.9 Unspecified abdominal pain
CPT/HCPCS: 59025; 59899; 76805; 81001; A9270

== ENCOUNTER 2025-04-30 20:07 | Emergency (ER) | payer MEDICAID, SELFPAY ==
[2025-04-30 20:09] VITALS: BMI 42.9
[2025-04-30 20:16] VITALS: BP 131/81; PULSE 80; RESP 20; TEMP 37; O2SAT 96
--- NOTE | 2025-04-30 20:22 | PD.EDEAR ---
ED Ear RME/HPI General Chief complaint: Ear Stated complaint: LEFT EAR PAIN Time Seen by Provider: 04/30/25 20:20 Arrival date/time: 04/30/25 20:07 19F with no significant PMH presents to ED with 2 weeks of L ear pain. Patient denies URI symptoms. Limitations: no limitations Related Data Home Medications ?Medication ?Instructions ?Recorded ?Confirmed vitamins no.102-iron 90 1 cap PO QDAY 04/22/25 04/22/25 mg-folate 1 mg-dha 200 mg capsule Previous Rx's ?Medication ?Instructions ?Recorded sod chloride-sod 1 applic intranasal Q6H PRN dry 03/12/25 bicarb-hyaluronate sod-aloe 0.9 % nasal passages 5 days #30 mL nasal spray gel (Nasogel) [id number]-wcoyfstnx 3.5 4 drp otic (ear) QID 10 days #10 mL 04/30/25 mg-10,000 unit/mL-1 % ear drops,susp Allergies Allergy/AdvReac Type Severity Reaction Status Date / Time No Known Allergies Allergy Verified 04/22/25 19:15 Review of Systems Review of Systems Systems Reviewed: All systems reviewed, normal except as documented Constitutional Constitutional: Reports system reviewed and no additional complaints, except as documented, Denies fever(s) and Denies headache(s) ENT Ears, Nose, Mouth, and Throat: Reports as per HPI, Denies disequilibrium, Reports otalgia and Denies headache(s) Cardiovascular Cardiovascular: Reports system reviewed and no additional complaints, except as documented, Denies chest pain and Denies dyspnea Respiratory Respiratory: Reports system reviewed and no additional complaints, except as documented, Denies cough and Denies dyspnea Gastrointestinal Gastrointestinal: Reports system reviewed and no additional complaints, except as documented, Denies abdominal pain, Denies nausea and Denies vomiting Neurologic Neurologic: Reports system reviewed and no additional complaints, except as documented, Denies confusion, Denies disequilibrium and Denies headache(s) Psychiatric Psychiatric: Denies confusion Past Medical History Past Medical History NEUROLOGIC: Negative Cerebrovascular Accident, Transient Ischemic Attacks (TIA), Dementia, Alzheimer's Disease or Seizures CARDIAC: Negative Myocardial Infarction, Congestive Heart Failure or Hypertension RESPIRATORY: Negative Chronic Obstructive Pulmonary Disease (COPD), Asthma, Bronchitis, Emphysema, Pneumonia, Cough, Sputum Production, Wheezing, Chest Deformities, Smoking, Smoking Cessation Counseling, Smoking Exposure or Tobacco Use GASTROINTESTINAL: Negative Liver Cancer, Hepatitis, Cirrhosis, Pancreatic Cancer, Pancreatitis, Celiac Disease, Gall Bladder Disease, Crohn's Disease, Obstructive Bowel or Hiatal Hernia GENITOURINARY: Negative Renal Disease, Kidney Stones, Polycystic Kidney Disease, Neurogenic Bladder or Inguinal Hernia REPRODUCTIVE: Positive Previous Pregnancies; Negative Genital Herpes MUSCULOSKELETAL: Negative Muscular Dystrophy, Myasthenia Gravis, Marfan's Syndrome, Bone Cancer or Gout ENT: Negative Cataracts, Glaucoma, Blind or Retinal Detachment ENDOCRINE: Negative Diabetes Mellitus Type 1, Diabetes Mellitus Type 2 or Syndrome of Inappropriate Antidiuretic Hormone (SIADH) HEMATOLOGIC: Negative Anemia, Leukemia or Hemophilia PSYCHO/SOCIAL: Negative Schizophrenia, Recreational Drug Use, Depression, Anxiety or Behavior Problems OTHER HISTORY: Negative Hospitalization, Autoimmune Disease, Down Syndrome, Autism, Chicken Pox, Hepatitis A, Hepatitis B, Hepatitis C or Cancer Surgical History SURGICAL: Negative Section Social History SMOKING STATUS: Never smoker SECOND HAND EXPOSURE: No ED Exam General Limitations: Present no limitations General appearance: Present alert and in no apparent distress Head Head exam: Present atraumatic Eye Eye exam: Present normal appearance, PERRL and EOMI ENT ENT exam: Present normal oropharynx and mucous membranes moist Expanded ENT Exam External ear exam: Present external tenderness (L tragal) TM/Canal exam: Left TM: canal discharge and canal tenderness Neck Neck exam: Present normal inspection, full ROM and trachea midline Chest Chest inspection: Present normal inspection and symmetric chest wall rise Respiratory Respiratory exam: Present normal lung sounds bilaterally Cardiovascular Cardiovascular exam: Present regular rate, normal rhythm and normal heart sounds Abdominal Exam Abdominal exam: Present soft and normal bowel sounds Extremities Exam Extremities exam: Present normal inspection and full ROM Back Exam Back exam: Present normal inspection and full ROM Neurological Exam Neurological exam: Present alert, oriented X3 and CN II-XII intact Psychiatric Psychiatric exam: Present normal affect and normal mood Skin Skin exam: Present warm, dry, intact and normal color Course Quality Measures none Vital Signs Vital signs: Vital Signs Temperature 98.6 F 04/30/25 20:16 Pulse Rate 80 04/30/25 20:16 Respiratory Rate 20 04/30/25 20:16 Blood Pressure 131/81 H 04/30/25 20:16 Pulse Oximetry (%) 96 04/30/25 20:16 Oxygen Delivery Method Room Air 04/30/25 20:16 O2 at 96% on RA and WNLs Ear MDM Narrative MDM Narrative:: 19F with no significant PMH presents to ED with 2 weeks of L ear pain. Patient denies URI symptoms. Physical exam reveals L tragal/canal tenderness and discharge. R ear normal. Patient is afebrile, calm, and alert. Likely OE. Meds and school guidance counselor given. Patient data External records reviewed:: [facility] previous records Clinical information provided by:: patient Social determinants that could affect healthcare access:: none Patient has the following chronic illnesses:: none How is presenting disease/condition affected by chronic disease/condition?: no chronic disease Evaluation data The following diagnostics were reviewed and interpreted by me:: other (specify) (none) Lab and/or radiology exams considered but not ordered:: not ordered Interpretation Summary: n/a Medications / Prescriptions Medications or Prescriptions considered but not ordered:: not ordered Medication administrations:: n/a Consultations Consultation(s) initiated? (list below): No Diagnosis Ear Differential Diagnosis: otitis externa, otitis media, foreign body in ear, ruptured TM and cerumen impaction Most likely diagnosis given after review of the tests above:: OE Admission Indicated Admission indicated?: not indicated Admission Request Was there a request for admission?: No Disposition Plan Disposition Plan: Discharge Discharge Attestation Discharge Attestation: The patient and all family members were given an opportunity to ask questions and understood the discharge instructions. Discharge instructions specifically effects, indications for sooner follow up or return to the emergency department, and the expected course of current diagnosis. Patient condition: Stable Discharge Plan Plan Patient Disposition: HOME (Self Care) Discharge Disposition comment: Stable Prescriptions/Referrals Prescriptions/Med Rec: New vmtnjcna-umtfhdnxa-GU 3.5-10,000-1 mg/mL-unit/mL-% drops,suspension 4 drp otic (ear) QID 10 Days Qty: 10 0RF No Action Nasogel 0.9 % spray gel 1 applic intranasal Q6H PRN (Reason: dry nasal passages) 5 Days Qty: 30 1RF PNV [id number]-[id number] 90 mg iron- 1 mg-200 mg capsule 1 cap PO QDAY Problem List Clinical Impression: Otitis externa Patient/Caregiver Discharge Instructions Education Materials: ED External Ear Infection (Adult) Additional Instructions: Please follow-up with PCP within 24-48 hours and return immediately if symptoms worsen. Keep drops in ear at least 1 min each time. Print Language: Micronesian Stand Alone Forms: Patient Portal Info Letter PA/VALUE ANALYSIS COORDINATOR Supervising Physician PA/VALUE ANALYSIS COORDINATOR Supervising Physician: Dr. Mackay
== END 2025-04-30 21:18 | disposition home or self-care (01) ==
LOC: SERX 20:51
PROVIDERS: Emergency Provider Emergency Medicine; PCP Family Medicine
DX: H60.92 Unspecified otitis externa, left ear (principal)
CPT/HCPCS: 99281

== ENCOUNTER 2025-06-17 11:32 | Outpatient (AMB) | payer MEDICAID, SELFPAY ==
[2025-06-17 11:40] VITALS: BP 129/88; PULSE 68; RESP 18; TEMP 36.6; O2SAT 98; BMI 49.4
--- NOTE | 2025-06-17 11:40 | OBCLNT_ITS ---
Vital Signs 06/17/25 11:40 Height 1.63 m Height Method Stated Weight 131.315 kg Weight Measurement Method Standing Scale BMI 49.4 BP 129/88 H Blood Pressure Source Automatic Cuff Blood Pressure Location Right Upper Arm Position Sitting Respiration 18 Pulse 68 Pulse Source Monitor Temp 97.9 F Temp Source Temporal Artery Scan Pulse Oximetry (%) 98 Oxygen Delivery Method Room Air Allergies/Home Meds Allergies & Medications Allergies No Known Allergies Allergy (Verified 06/29/25 16:49) Medication Reconciliation vitamins no.102-iron 90 mg-folate 1 mg-dha 200 mg capsule 1 cap PO QDAY 04/22/25 [History Confirmed 06/29/25] aspirin 81 mg tablet,delayed release (Adult Low Dose Aspirin) 81 mg PO QDAY 06/29/25 [History Confirmed 06/29/25] Intake Visit Data Collection New Patient or Established: Established Patient (seen at [facility] within 3 years) Reason for Visit:: OBS/GBS Seen by Clinical Staff ONLY (RN/MA): No Nursery Supervisor Required: No Do You Feel Safe at Home: Yes Authorities Contacted: N/A PCP or OBGYN visit in last 3 months: Yes Date of Last PCP or OBGYN visit: 06/02/25 Hx Now: Yes Are you currently on any form of Control: No Pain Present Currently: No Pain Scale Used: Sosa-Pichardo/Numerical Pain scale:: 0 Smoking Status Smoking Status: Never smoker Immunizations Flu Vaccine in the Last 12 Months: No Questionnaires Covid-19 Vaccine Questionnaire Has patient been vacinated for Covid-19 Have you been vacinated for Covid-19: No PHQ-9 PHQ-2 Over the last 2 weeks, how often have you been bothered by any of the following problems? 1. Little interest or pleasure in doing things: not at all 2. Feeling down, depressed, or hopeless: not at all Total score: 0 PHQ-9 3. Trouble falling or staying asleep, or sleeping too much: Not at all 4. Feeling tired or having little energy: Not at all 5. Poor appetite or overeating: Not at all 7. Trouble concentrating on things, such as reading the newspaper or watching television: Not at all 8. Moving or speaking so slowly that other people could have noticed? - Or the opposite - being so fidgety or restless that you have been moving around a lot more than usual: not at all 9. Thoughts that you would be better off or of hurting yourself in some way: Not at all If you checked off any problems, how difficult have these problems made it for you to do your work, take care of things at home, or get along with other people?: not difficult at all Source: Developed by Drs. Levi Pickering, Laly Dasilva, Jeffry Alicia and colleagues, with an educational lucrecia from [employer]. 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 - Continue vitamins - Order comprehensive lab panel - Offer genetic screening for aneuploidy and sex determination - Patient expressed interest in geneti c screening - Schedule follow-up appointment in 4 we eks - Ultrasound images to be provided at ne xt visit - Information Technology Technician on risks of vaping during preg elen and recommend cessation - Obtain detailed cardiac history and re cords of infant heart surgery - Consider cardiology consultation for p regnancy management if indicated based on cardiac history 01/08/25 -?-?-?-?-?-?-?-?-?-?-?-?- 14w 6d 122.016 kg 120/81 Kelsy Stewart, at 33w2d, presents for routine care. Transferred from Dr. Amaro. Due date confirmed as 02/26/2025 by MFM ultrasound. Reports good movement. 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 No CTX/LOF/VB. heart rate is 146 bpm. Plan: Repeat scheduled for 02/19/2025 at 12:30 PM Growth ultrasound with MFM on 01/31/2025 Follow-up in 2 weeks Begin weekly visits thereafter Reviewed signs of labor and when to present to L&D 02/07/25 -?-?-?-?-?-?-?-?-?-?-?-?- 19w 1d 123.831 kg 121/82 at 19w1d with ROSIE 07/03/25 (LMP 09/26/24), presents for routine care. No CTX/LOF/VB. Reports minimal FM, denies [place]/VC/epigastric pain. Taking vitamins, no issues with anemia. Recent MFM visit on 01/31/25 completed. Upcoming anatomy US scheduled for 02/26/25. FHT: 148 bpm. Plan: Proceed with 02/26 anatomy scan at [facility]?s. Glucose test to be ordered. No follow-up until after ultrasound unless patient has new concerns. Reinforced FM monitoring and reviewed preeclampsia and labor precautions. 03/12/25 -?-?-?-?-?-?-?-?-?-?-?-?- 23w 6d 126.269 kg 123/79 absent unknown 34 130 active , 23w6d No CTX/LOF/VB, good FM. Reports 5 episod es of epistaxis over past 6 wks, associated with lightheadedness. Exam shows dry nasal mucosa. MFM sono 02/26: normal anatomy, MVP 6.4cm, CL 4.97cm, posterior placenta. FHR 128?130. Plan: Start nasal spray q4h. Repeat GTT. F/u in 4 wks. If epistaxis persists >2?3 days, refer to PCP or ENT 05/19/25 -?-?-?-?-?-?-?-?-?-?-?-?- 33w 4d 127.913 kg 109/76 absent unknown 34 active - Patient was last seen on March 12 when she was 23 weeks and 6 days gestation. - She reports missing her previous appoi ntment and having difficulty reaching the office by phone. - States she tried calling but was samantha jolly on hold or calls were not answered during lunch hours. - Patient had a recent hospitalization f or contractions. - Reports she was having contractions and was given medication ending in p ine as recommended by the provider. - Was advised to make another appointm ent following the hospitalization. - She acknowledges being late for her on e-hour glucose test, which should have been completed by 26 weeks gestation. - Patient has an upcoming ultrasound alexa eduled at [facility] on June 12. - Complete 3-ho ur glucose tolerance test as soon as possible, preferably tomorrow - Perform lab tests that were due at 26- 28 weeks gestation - Administer Tdap vaccine today - Follow up in one week to review lab re sults and initiate treatment if necessary - Attend scheduled ultrasound at [facility] on June 12 06/02/25 -?-?-?-?-?-?-?-?-?-?-?-?- 35w 4d 131.088 kg 125/80 absent unknown 36 active - Patient reports frequent contractions - Describes them as when your stomach is really hard - Reports feeling really sore - History of one episode of labo r at 33 weeks, which has now resolved - Late entry to care with multi ple missed appointments - Denies diabetes (based on recent negative 3-hour glucose toleranc e test) - Add iron supplementation for anemia (hemoglobin 9.9) - Continue vitamins - Weekly appointments from now on (patie nt is 35 weeks) - If contractions occur: drink large goldy unt of water, time contractions, come to hospital if lasting more than 30-45 minutes for labor workup - Ultrasound scheduled for June 12 - Next appointment in one week 06/17/25 -?-?-?-?-?-?-?-?-?-?-?-?- 37w 5d 131.315 kg 129/88 absent unknown 38 active - Mara Stockton is a 1 para 0 female at 37 weeks and 5 days gestation presenting for routine visit. - She has a history of hospitalization f or contractions at 35 weeks gestation. - She has a history of iron deficiency a nemia and is currently on iron supplementation. - She has a family history of total anom alous pulmonary venous return in a sibling. - Schedule induc tion of labor at 39 weeks (June 26) due to large for gestational age fetus - Call hospital to schedule induction da te - Weekly NST to start MICKY - Feeds at delivery due to family histor y of total anomalous pulmonary venous return ROSIE Calculator Estimated Delivery Date Method Current WG Current Estimate 07/03/25 LMP (Certain) 39w 4d Other Estimates 07/06/25 Ultrasound #1 39w 1d Specific Issue/Plans - Ultrasound (02/26/2025): - Single intrauterine gestation - Largest vertical pocket: 6.4 cm - Posterior placenta - Cervix length: 4.97 cm - Ovaries: normal - Head and neck: normal - Anatomy survey: within normal limits Notes Visit Date: 06/02/25 Last Updated by: Javier Bergeron MD - Date: 05/30/2025 - Glucose tolerance test: - 1-hour glucose: 146 mg/dL - 3-hour glucose: Negative (normal) - Fastin mg/dL - 1-hour: 141 mg/dL - 2-hour: 109 mg/dL - 3-hour: 93 mg/dL - Hemoglobin A1c: 5.8% - Hemoglobin: 9.9 g/dL (low) - TSH: 4.04 mIU/L (normal) - ARPA test: Negative Office Procedures [facility] LOC & Office Proc's Nursing/Assessment Patient Status: Established Patient OB Clinic Nursing Assessment: Medication Reconciliation, Update PMH in EMR and Vital Signs OB Clinic Coordination of Care: Complex Care and Chronic Disease 1-5, Education Complex Pt/Fam, Consent,records obtained, informed consent, Lab and Imaging orders and Staff clarify orders Special Needs: Heart tones Miscellaneous Interventions: Culture Specimen Collection Established Patient Charge Established Patient Point Assignment: 150 Established Patient Point Charge: EP Level 4 (120-155) Assessment & Plan Diagnosis / Problem List (1) Large for gestational age fetus: Status: Acute (2) Supervision of high risk , unspecified, third trimester: Status: Acute Plan Problem List - Iron deficiency anemia - Large for gestational age fetus Assessment 37-week and 5-day 1 para 0 female with large for gestational age (LGA) fetus at 86th percentile with estimated weight of 3580 grams and abdominal circumference at 97th percentile, concerning for macrosomia with projected weight of 3906 grams at 39 weeks. History of contractions requiring hospitalization at 35 weeks. Iron deficiency anemia currently managed with iron supplementation. Family history significant for total anomalous pulmonary venous return in sibling. Current heart rate 145 bpm, normal. Single living fetus in cephalic presentation with posterior placenta and no previa, biophysical profile 04/04. Plan - Schedule induction of labor at 39 weeks (June 26) due to large for gestational age fetus - Call hospital to schedule induction date - Weekly NST to start MICKY - Feeds at delivery due to family history of total anomalous pulmonary venous return 1. Progress Reviewed gestational age (37 weeks 5 days), growth (estimated weight 3580 grams, 86th percentile, LGA), and heart rate (145 bpm, normal). Planned frequent visits (every 2 weeks until 36 weeks, then weekly). 2. Instructed patient to monitor movements and report decreases immediately. 3. Testing Counseled on routine third-trimester labs per guidelines. Discussed potential need for ultrasound or monitoring based on risk factors (weekly NST recommended due to LGA fetus). 4. Preeclampsia Precaution Educated on preeclampsia signs: severe headache, vision changes, right upper quadrant pain, sudden swelling. Advised urgent reporting of symptoms and discussed blood pressure monitoring if high risk. 5. Labor Precautions Reviewed labor signs: regular contractions, pelvic pressure, back pain, bleeding, or fluid leakage. Instructed to seek immediate care for these symptoms. 6. Lifestyle and Delivery Preparation Reinforced vitamins, nutrition, and safe activity. Discussed plan (induction scheduled at 39 weeks due to LGA fetus to prevent shoulder dystocia), pain management, and . Advised on labor preparation (e.g., hospital bag) and expectations. 7. Psychosocial Support Assessed emotional well-being and offered resources for mental health or parenting support.
== END 2025-06-17 11:55 | disposition home or self-care (01) ==
LOC: HODSOBC 11:32
PROVIDERS: Supervising Provider Obstetrics & Gynecology; Visit Provider Obstetrics & Gynecology
DX: O09.893 Supervision of other high risk pregnancies, third trimester (principal); O36.63X0 Maternal care for excessive fetal growth, third trimester, not applicable or unspecified; O99.013 Anemia complicating pregnancy, third trimester; D50.9 Iron deficiency anemia, unspecified; Z3A.37 37 weeks gestation of pregnancy; Z82.79 Family history of other congenital malformations, deformations and chromosomal abnormalities
CPT/HCPCS: 99214; G0463

== ENCOUNTER 2025-06-29 15:26 | Inpatient (IN) | payer MEDICAID, SELFPAY ==
[2025-06-29] VITALS (7 sets, daily range): BP systolic 115–136; BP diastolic 58–88; PULSE 64–107; RESP 18–20; TEMP 36.5–36.9; BMI 50.2
--- NOTE | 2025-06-29 16:39 | XR_ITS ---
Examination: Complete OB ultrasound greater than 14 weeks Date and time of exam: June 29, 2025, 1653 hours INDICATIONS: Labor induction today, pelvic contractions, unknown presentation Findings: Viable intrauterine single fetus with single amniotic sac presentation cephalic spine maternal right Cardiac motion 148 bpm Placenta fundal posterior grade 3 Umbilical cord insertion seen Amniotic fluid index 6.9 cm Cervix 3.7 cm Ovaries obscured by the fetus. Composite estimated gestational age based on BPD, head circumference, abdominal circumference, femur length is 38 weeks 3 days Estimated weight 3560 g. Survey of intracranial anatomy, spinal anatomy, abdominal anatomy, four-chamber heart performed with no abnormalities identified. Impression: Viable intrauterine gestation cephalic presentation.
[2025-06-29 17:25] LABS: Amphetamine/Metham Scrn,Ur OB Negative (Negative); Benzoylecgonine Screen, Ur OB Negative (Negative); Opiate Screen,Urine OB Negative (Negative); THC Screen,Urine OB Negative (Negative)
[2025-06-29 17:49] LABS: Basophils # (Auto) 0.0 Thou/mm3 (0.0-0.2); Basophils % (Auto) 1 % (0-2.5); Eosinophils # (Auto) 0.1 Thou/mm3 (0.0-0.5); Eosinophils % (Auto) 1 % (0-10); Hematocrit 29.0 % (36.0-46.0); Hemoglobin 9.0 g/dL (12.0-16.0); Immature Granulocytes Auto 0.03 Thou/mm3 (0.00-0.00); Lymphocytes # (Auto) 1.5 Thou/mm3 (1.0-4.8); Lymphocytes % (Auto) 22 % (10-50); Mean Corpuscular HGB Conc 31.0 g/dl (31.0-37.0); Mean Corpuscular Hemoglobin 22.2 pg (25.0-35.0); Mean Corpuscular Volume 71 fL (80-100); Monocytes # (Auto) 0.5 Thou/mm3 (0.0-0.8); Monocytes % (Auto) 8 % (0-12); Neutrophils # (Auto) 4.5 Thou/mm3 (1.8-7.7); Neutrophils % (Auto) 68 % (37-80); Nucleated Red Blood Cell # 0.00 Thou/mm3 (0.00-0.00); Nucleated Red Blood Cell % 0 /100 WBC (0); Platelet Count 364 Thou/mm3 (140-440); RDW Standard Deviation 38.9 fL (36.4-46.3); Red Blood Count 4.06 Miln/mm3 (4.00-5.20); White Blood Count 6.6 Thou/mm3 (3.6-11.0)
[2025-06-29 19:59] LABS: Syphilis Nonreactive (Nonreactive)
[2025-06-29] MEDS: RINGERS LACTATED 1000 ML 1,000 ML 100 ML IV (21:49)
--- NOTE | 2025-06-29 21:50 | PD.LDHP ---
Documentation for date of: 06/29/25 OB Labor/Induct. 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 , and last saw nitro man at [facility] till Covid never had any cardiac issues History of Present Adequate Care: Yes Obstetrical complications: other (baby in the 97th percentile / by [facility] US on 06/16/2025 ) Medical complications: cardiovascular Narrative: H/o cardiac surgery as an of 6 weeks 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Type vitamins no.102-iron 90 1 cap PO QDAY 04/22/25 06/29/25 History mg-folate 1 mg-dha 200 mg capsule aspirin 81 mg tablet,delayed 81 mg PO QDAY 06/29/25 06/29/25 History release (Adult Low Dose Aspirin) Allergies Allergy/AdvReac Type Severity Reaction Status Date / Time No Known Allergies Allergy Verified 06/29/25 16:49 OB Exam Physical Exam Vital signs: Temp Pulse Resp BP O2 Del Method 98.2 F 74 19 115/65 Room Air 06/29/25 19:39 06/29/25 19:41 06/29/25 19:39 06/29/25 19:41 06/29/25 19:39 Narrative: Size > dates uterus non tender Occasional/ contractions non tender FHR is category 1 feta presentation is vertex pelvic exam closed , thick, high OB Results Labs 06/29/25 17:15 Labs: Short CBC 06/29/25 Range/Units 17:15 WBC 6.6 (3.6-11.0) Thou/mm3 Hgb 9.0 L (12.0-16.0) g/dL Hct 29.0 L (36.0-46.0) % Plt Count 364 (140-440) Thou/mm3 Impressions Impression: [facility] [address] [place] [address] [facility] Report Signed Patient: WILLIAM ENNIS Record#: [id number] Birthdate: 2005 Age/Sex: 20 / F Location: [facility] S456-A Attending Dr: Sophia White MD Ordering Physician: SOPHIA WHITE MD Date of Service: 06/29/25 Procedure(s): US OB >= 14 weeks Fetus Accession Number(s): [id number] cc: SOPHIA WHITE MD; Stef Santos MD; NO PRIMARY/FAMILY,PHYSICIAN~ Examination: Complete OB ultrasound greater than 14 weeks Date and time of exam: June 29, 2025, 1653 hours INDICATIONS: Labor induction today, pelvic contractions, unknown presentation Findings: Viable intrauterine single fetus with single amniotic sac presentation cephalic spine maternal right Cardiac motion 148 bpm Placenta fundal posterior grade 3 Umbilical cord insertion seen Amniotic fluid index 6.9 cm Cervix 3.7 cm Ovaries obscured by the fetus. Composite estimated gestational age based on BPD, head circumference, abdominal circumference, femur length is 38 weeks 3 days Estimated weight 3560 g. Survey of intracranial anatomy, spinal anatomy, abdominal anatomy, four-chamber heart performed with no abnormalities identified. Impression: Viable intrauterine gestation cephalic presentation. Dictated By: Stef Santos MD Signed By: <Electronically signed by Stef Santos MD in OV> 06/29/251844 DD/ 184 OB Assessment & Plan Assessment and Plan (1) Obesity affecting : Status: Acute (2) Supervision of high risk , unspecified, third trimester: Status: Acute (3) Large for gestational age fetus: Status: Acute Additional Plan Induction method: other (cervidil now ) Plan: induction and GBS prophylaxis tx Additional Plan Comment: Plan of mangement, induction and ripening all discussed with the patient all questions answered
[2025-06-30] VITALS (16 sets, daily range): BP systolic 119–172; BP diastolic 56–95; PULSE 57–75; RESP 16–19; TEMP 36.9–37.1; O2SAT 99–100
[2025-06-30] MEDS: RINGERS LACTATED 1000 ML 1,000 ML 100 ML IV ×2 (06:09→20:16)
--- NOTE | 2025-06-30 07:15 | PC.NURSE ---
06/29/25-06/30/25 Rn precepting Arlette Child RN, reviewed and agree the labor progress charting.
--- NOTE | 2025-06-30 08:00 | ECHO_ITS ---
Patient Info Name: Mara Stockton Age: 20 years : 2005 Gender: Female Ht: 163 cm Wt: 132 kg BSA: 2.53 m2 BP: 119 / 56 mmHg HR: 66 bpm Exam Date: 06/30/2025 9:06 AM Admit Date: 06/29/2025 Site: [facility] Room Number: [id number] Patient Status: I Technical Quality: Poor Exam Type: CA echo doppler complete Reason for Poor Study: body habitus Calibration Tester: Ayesha Castanon Ordering Physician: Emily White Study Info Indications Hx of total anamalous pulmonary venous return - Primary Location: [id number] Left Ventricular Outflow Tract Name Value Normal LVOT 2D LVOT Diameter 1.9 cm LVOT Doppler LVOT Peak Velocity 149 cm/s LVOT Mean Gradient 4 mmHg LVOT VTI 33 cm LVOT VTI/AV VTI Ratio 0.9 LVOT Stroke Volume 94 ml Mitral Valve Name Value Normal MV Doppler MV Decel Ford 434 cm/s2 MV PHT 87 ms MV Area (PHT) 2.5 cm2 4.0-5.0 MV Diastolic Function MV E Peak Velocity 130 cm/s MV A Peak Velocity 44 cm/s MV E/A 2.9 MV Annular TDI MV Septal e' Velocity 6.5 cm/s MV E/e' (Septal) 19.9 MV Lateral e' Velocity 14.3 cm/s MV E/e' (Lateral) 9.1 MV e' Average 10.42 cm/s MV E/e' (Average) 14.5 Tricuspid Valve Name Value Normal TV Regurgitation Doppler TR Peak Velocity 236 cm/s Estimated PAP/RSVP RA Pressure 3 mmHg <=5 PA Systolic Pressure 25 mmHg <36 RV Systolic Pressure 25 mmHg <36 Aortic Valve Name Value Normal AV 2D/MM AV Cusp Sep (MM) 1.2 cm AV Doppler AV Peak Velocity 194 cm/s AV Mean Gradient 7 mmHg AV VTI 38 cm AV Area (Cont Eq VTI) 2.5 cm2 >=3.0 AV Area (Cont Eq Theron) 2.2 cm2 AV DI (Theron) 0.77 AV Regurgitation 2D LVOT Area 2.8 cm2 Ventricles Name Value Normal LV Dimensions 2D/MM IVS Diastolic Thickness (2D) 0.8 cm 0.6-0.9 LVID Diastole (2D) 3.7 cm 3.8-5.2 LVIW Diastolic Thickness (2D) 1.2 cm 0.6-0.9 LVID Systole (2D) 3.6 cm 2.2-3.5 LVOT Diameter 1.9 cm LV Mass (2D Cubed) 112.54 g 67.00-162.00 LV Mass Index (2D Cubed) 45 g/m2 43-95 Relative Wall Thickness (2D) 0.65 <=0.42 IVS/LVIW Diastolic Thickness (2D) 0.67 0.00-1.50 LV Fractional Shortening/Ejection Fraction 2D/MM LV Fractional Shortening (2D) 12 % 27-45 LV EF (2D Teichholz) 6 % Atria Name Value Normal LA Dimensions LA Volume (4C A-L) 58 ml LA Volume (BP A-L) 57 ml Left Ventricle Left ventricular chamber dimension is normal. Left ventricular systolic function is mildly reduced with visually estimated ejection fraction of 40-45%. There is concentric remodeling noted in the left ventricle. Left ventricular segmental wall motion is normal. There is normal diastolic function in the left ventricle. Right Ventricle Right ventricular chamber dimension is normal. Right ventricular systolic function is normal. Left Atrium Left atrial chamber dimension is normal. Right Atrium Right atrial chamber dimension is normal. Aortic Valve The aortic valve is trileaflet. There is no aortic valve sclerosis. There is no aortic valve stenosis with a peak velocity of 194 cm/s, mean gradient of 7 mmHg, and aortic valve area of 2.5 cm2. There is no aortic valve regurgitation. Pulmonic Valve The pulmonic valve is normal. There is no pulmonic valve stenosis. There is no pulmonic regurgitation. Mitral Valve The mitral valve has normal leaflets. There is no mitral valve stenosis. There is no mitral valve regurgitation. Tricuspid Valve The tricuspid valve leaflets are normal. There is no tricuspid valve stenosis. There is trace tricuspid valve regurgitation. No pulmonary hypertension, estimated pulmonary arterial systolic pressure is 25 mmHg and systemic blood pressure of 119 mmHg in systole. Pericardium/Pleural The pericardium appears normal. There is no pericardial effusion. No pleural effusion visualized. Inferior Vena Cava Normal inferior vena cava with >50% collapse upon inspiration consistent with normal right atrial pressure, 3 mmHg. Aorta The aortic measurements are indexed to age and body surface area. The aortic root at the sinus of Valsalva is not well visualized. The prox ascending aorta is not well visualized. Summary 1. Left ventricle size is normal and systolic function is mildly reduced. Estimated ejection fraction is 40-45%. There is normal diastolic function. 2. Right ventricle chamber size is not well visualized. 3. There is trace tricuspid valve regurgitation. Report Signatures Finalized by Steffen Traylor on 06/30/2025 02:02 PM
--- NOTE | 2025-06-30 17:28 | ESPR_ITS ---
Documentation for date of: 06/30/25 OB Labor Progress Note Pain Control Pain control: tolerating well Pelvic Exam Dilation (cm): 1 Effacement (%): 50 station: -3 Amniotic membrane status: Intact Contractions Monitor mode: External Contraction frequency: 2.5-6 Contraction intensity: Mild Status status: Category ll Assessment and Plan Plan OB labor note: History of Present Illness HPI Patient is a 20-year-old G1, P0 who is being induced for a suspected LGA baby. She is 39-4/7 weeks today. She had Cervidil x 1 and is kate irregularly and rating her pain a 6 out of 10. The father the baby is at bedside. The patient is difficult to monitor due to maternal obesity and has a Ivette on which was not picking up heart tones well. Patient's BMI is 50. The baby is suspected 9 pounds and is in the 97th percentile with a large abdominal circumference. It was recommended by the [facility] that we pursue induction of labor. A pelvic exam was performed at 1715 and patient cervix is 1 cm/50/-3. Patient's abdominal girth is large and baby is high in the pelvis. I discussed risks and benefits of continuing to labor versus a primary . I discussed the risk of a shoulder dystocia with both the patient and the father the baby. I discussed the fact that the baby is measuring 97th percentile, over 9 pounds and seems to have a larger abdominal circumference than the head circumference and this could lead to a shoulder dystocia. I discussed shoulder dystocia's are difficult to predict and are an absolute emergency. I discussed the only way to avoid a shoulder dystocia would be a . As the patient is difficult to monitor especially with a Ivette external monitor and I cannot place internal monitors as she is early in labor and morbidly obese I think a C- section is safer for both the mother and baby. In addition, patient had a TAPVR repair when she was a baby. We discussed it might be less stress on her heart to have a primary versus is pushing a baby out for up to 2 to 3 hours. We discussed the risks of the including the risk of more bleeding and the risk of further C-sections in the future. We discussed the fact that a C- section is harder to recover from then a vaginal delivery. The patient and the father the baby were allowed to ask any questions. After a short discussion, the patient opts for a primary low-transverse section. She understands the risks of surgery including the risk of bleeding, infection, blood transfusion, damage to bowel,bladder, blood vessels ,other organs and prolonged hospital stay and further surgery should any complications occur. She understands she will most likely need a with every in the future. All questions were answered all consents were signed.
[2025-06-30] MEDS: ceFAZolin/D5W 2 GM IV 2 GM/100 ML BAG IV (17:34)
[2025-06-30] MEDS: CITRIC ACID/SODIUM CITR 15 ML UDC (BICITRA) 30 ML PO (17:35)
[2025-06-30] MEDS: FAMOTIDINE INJ 10 MG/ML VIAL 2 ML 20 MG IV (17:35)
--- NOTE | 2025-06-30 19:53 | OBDSUM_ITS ---
Data (Singh) Data Hx Section: No Reason for Primary Section: Suspected LGA Maternal Blood Type: B Pos Rubella Titre: Positive RPR: Non-reactive Labs: Negative: RPR, Hepatitis B, HIV, Chlamydia and Gonorrhea and Unknown: Group Beta Strep : 2 Term: 0 : 0 Livin Abortions: Spontaneous & Theraputic: 1 Delivery Data (Singh) Labor Data Initiation of labor: Induction Induction/Augmentation Agent: Cervidil ROM date: 06/30/25 ROM time: 18:30 Amniotic membrane rupture type: Artificial Amniotic fluid description: Clear Delivery Data EDC: 07/03/25 EDC calculated by:: LMP/early US confirmation Date of arrival to unit: 06/29/25 Onset of labor date: 06/30/25 Onset of labor time: 18:30 Complete dilation date: 06/30/25 [place] delivery date: 06/30/25 delivery time: 18:31 Gestational age (weeks): 39 Gestational age (days): 4 Placenta delivery date: 06/30/25 Placenta delivery time: 18:31 Stage 1 total time: Labor - Stage 1 Duration 0 minutes Delivered by: Aysha Quezada ([facility]) Delivery nurse: roxanna Cheema nurse: colton mccall Body Maker Machine Setter at delivery: No Support person(s) at delivery: fob Other staff at delivery: see or record Delivery Method Delivery method: Low Transverse Presentation: Vertex position: OA Anesthesia Type Anesthesia Type: Spinal Delivery Room Medications Delivery room medications: Pitocin 20 u IV Placenta Placenta delivery description: Spontaneous and Manual Removal Cord blood sent to lab: Yes cord blood collection: Cord Blood Type Episiotomy Episiotomy description: None EBL Estimated blood loss (ml): 300 Umbilical Cord cord description: 3 Vessels Additional Procedures See op report for further details Complications Complications: None [place] Data (Singh) Corydon Data order: 1 Corydon's gender: Male Identification band number: [id number] weight (gms): 3690 g Weight (pounds): 8 lbs and 2.2 ozs length: 52 cm 1 minute: 9 5 minutes: 9
[2025-06-30] MEDS: ACETAMINOPHEN IVPB 1,000 MG/100 ML VIAL 250 MG IV (20:16)
--- NOTE | 2025-06-30 20:26 | ESOP_ITS ---
Operative Note - LOCAL COM[employer]ATION [employer]IVER Procedure Date of procedure: 06/30/25 Procedure Performed: Primary low-transverse section Indication: The patient is a 20-year-old -0-1-0 who presented for induction of labor for a LGA baby. EDC is 07/03/2025 patient's 39-4/7 weeks . The maternal medicine specialist recommended induction of labor as the baby was suspected 9 pounds and in the 97th percentile. The abdominal circumference was large, measuring greater than the head circumference the maternal- medicine ultrasound. The patient's current BMI is 50. The patient was admitted 06/29/[address] White. A Cervidil was placed over night and the patient made very little cervical change from closed to 1 cm and the baby was still high in the pelvis. The patient was given options including continued induction of labor or primary low-transverse section especially given the fact the baby was suspected LGA. The risk of a shoulder dystocia was discussed in detail given the large abdominal circumference measured on the baby. The patient opted for a primary low-transverse section. Pre-Op diagnosis: 1. Suspected LGA baby 2. Maternal BMI of 50 3. Patient desires Primary Section Post-Op diagnosis: Same Anesthesia type: Spinal Procedure description: After obtaining informed consent, the patient was brought back to the operating room and spinal anesthesia was administered. She was then prepped and draped in the dorsal supine position with a leftward tilt in a normal sterile fashion. A Hernandez catheter was inserted into the patient's bladder. The patient was given 2 g of Ancef by anesthesia. A Pfannenstiel skin incision was made with a scalpel and carried down to the underlying fascia. The fascia was incised in the midline and the fascial incision extended laterally using Hou scissors. The superior aspect of the fascia was grasped with Celestina clamps and the underlying rectus muscles dissected off using blunt and sharp dissection. This was repeated in the inferior aspect of the incision. The rectus muscles were in the midline and the peritoneum was picked up and entered sharply with Metzenbaums. This was extended superiorly and inferiorly with good visualization of the bladder. The bladder blade was inserted and the uterus was incised in a low transverse fashion above the bladder reflection. The uterine incision was extended laterally using blunt dissection with the surgeon's fingers. The bag shaver was ruptured and clear fluid was noted. The bladder blade was removed and the infant was delivered atraumatically in a vertex presentation. The cord was clamped and cut after waiting 30 seconds as the baby was vigorous. The was handed off the waiting pediatric staff. Cord blood was sent. Cord gases were saved. The placenta was then manually removed. The uterus was exteriorized and cleared of all clots and debris. The uterine incision was closed using 0 Monocryl in a running locked fashion. Excellent hemostasis was noted. The uterus was returned to the patient's abdominal cavity and copious irrigation carried out with warm normal saline. The uterine incision was reexamined and noted to be hemostatic. After ensuring the rectus muscles were hemostatic, these were reapproximated in the midline using a running suture of 0 Monocryl. The fascia was closed with 0 Vicryl in a running fashion. The subcutaneous tissues were irrigated and found to be hemostatic. These were reapproximated using running suture of 2-0 plain. The skin was closed with a subcuticular suture of 4-0 Monocryl. The procedure was then terminated. The patient tolerated the procedure well, sponge, lap, instrument, and needle counts were correct x 2. The patient went to the recovery area awake and in stable condition. Pathology was none. Fluids: crystalloid Fluid amount (mL): 600 Urine output (mL): 200 Specimen: none Implants: None Estimated blood loss (ml): 300 Findings: Liveborn male in the OA presentation with no nuchal cord and meconium. Apgars were 9 and 9. Weight was 8 pounds 3 ounces. The placenta was complete ,spontaneous, grossly normal. The patient's fallopian tubes and ovaries were normal. She had a bicornate uterus. Complications: none Surgical staff Operation Date: 06/30/25 17:45 Case Staff PRODUCE TEAM MEMBER: Yeni Jang RN First Assistant: Ania Skinner Diagnosis Discharge Diagnosis (1) Large for gestational age fetus: Status: Acute Problem details: Status post primary low-transverse section. (2) Supervision of high risk , unspecified, third trimester: Status: Acute (3) Morbid obesity with BMI of 50.0-59.9, adult: Status: Acute Problem details: Lovenox POD #1 (4) TAPVR (total anomalous pulmonary venous return): Status: Acute Problem details: Patient is status post surgery for repair as an infant. The baby will need an echocardiogram at 1 month of age Problem List Completed Was Problem List Reviewed/Reconciled?: Yes
[2025-06-30] MEDS: ONDANSETRON INJ 2 MG/ML INJ 2 ML 4 MG IV (21:42)
[2025-07-01] MEDS: OXYTOCIN in NS 20 units 20 UNIT/1,000 ML BAG 125 UNIT IV (00:31)
[2025-07-01] MEDS: KETOROLAC INJ 30 MG/ML VIAL IVP ×3 (00:32→14:16)
[2025-07-01 00:53] VITALS: BP 138/80; PULSE 72; RESP 14; TEMP 36.7; O2SAT 98
[2025-07-01 04:33] VITALS: BP 120/76; PULSE 68; RESP 16; TEMP 36.7; O2SAT 98
[2025-07-01 05:29] LABS: Basophils # (Auto) 0.0 Thou/mm3 (0.0-0.2); Basophils % (Auto) 0 % (0-2.5); Eosinophils # (Auto) 0.0 Thou/mm3 (0.0-0.5); Eosinophils % (Auto) 0 % (0-10); Hematocrit 27.0 % (36.0-46.0); Immature Granulocytes Auto 0.07 Thou/mm3 (0.00-0.00); Lymphocytes # (Auto) 1.3 Thou/mm3 (1.0-4.8); Lymphocytes % (Auto) 9 % (10-50); Mean Corpuscular HGB Conc 31.1 g/dl (31.0-37.0); Mean Corpuscular Hemoglobin 22.2 pg (25.0-35.0); Mean Corpuscular Volume 71 fL (80-100); Monocytes # (Auto) 0.3 Thou/mm3 (0.0-0.8); Monocytes % (Auto) 2 % (0-12); Neutrophils # (Auto) 12.0 Thou/mm3 (1.8-7.7); Neutrophils % (Auto) 88 % (37-80); Nucleated Red Blood Cell # 0.00 Thou/mm3 (0.00-0.00); Nucleated Red Blood Cell % 0 /100 WBC (0); Platelet Count 329 Thou/mm3 (140-440); RDW Standard Deviation 39.4 fL (36.4-46.3); Red Blood Count 3.78 Miln/mm3 (4.00-5.20); White Blood Count 13.6 Thou/mm3 (3.6-11.0)
[2025-07-01 05:32] LABS: Hemoglobin 8.4 g/dL (12.0-16.0)
[2025-07-01 08:00] VITALS: BP 124/81; PULSE 68; RESP 16; TEMP 36.8; O2SAT 98
--- NOTE | 2025-07-01 08:39 | PD.LDPPPRG ---
Subjective Subjective Interval history: Delivery type: Patient doing well this morning. No acute complaints. Ambulating, tolerating p.o., and voiding without difficulty. HTN/Pre-E screen negative: No CP, SOB, [place], visual changes, RUQ pain. : Yes Lochia: diminishing Bowel: Flatus + / BM + UOP: Voiding freely Exam Vital Signs Temp Pulse Resp BP Pulse Ox O2 Del Method 98.2 F 68 16 124/81 98 Room Air 07/01/25 08:00 07/01/25 08:00 07/01/25 08:00 07/01/25 08:00 07/01/25 08:00 07/01/25 08:00 Constitutional Constitutional: no acute distress Routine HEENT Exam Head: Present normocephalic and atraumatic Eye: Present EOMI and PERRL ENT: Present mucous membranes moist Routine Neck Exam Neck: Present supple and trachea midline Routine Respiratory Exam Respiratory: Present chest non-tender, lungs clear, normal breath sounds and no resp distress Routine Cardiovascular Exam Cardiovascular: Present RRR Routine Abdominal Exam Abdominal: Present soft and normoactive bowel sounds Routine Extremities Exam Extremities: Present full ROM Routine Skin Exam Skin: Present intact, dry and warm Routine Neurological Exam Neurological: Present alert, oriented X3 and CN II-XII intact Routine Psychiatric Exam Psychiatric: Present normal affect and normal thought process Objective Labs 07/01/25 04:31 Labs: Laboratory Results - last 24 hr 06/29/25 07/01/25 17:15 04:31 WBC 13.6 H D RBC 3.78 L Hgb 8.4 L Hct 27.0 L MCV 71 L MCH 22.2 L MCHC 31.1 RDW Std Deviation 39.4 Plt Count 329 D Neut % (Auto) 88 H Lymph % (Auto) 9 L [place] % (Auto) 2 Eos % (Auto) 0 Baso % (Auto) 0 Neut # (Auto) 12.0 H Lymph # (Auto) 1.3 [place] # (Auto) 0.3 Eos # (Auto) 0.0 Baso # (Auto) 0.0 Immature Gran # (Auto) 0.07 H Absolute Nucleated RBC 0.00 Immature Gran % 1 H Nucleated RBC % 0 Blood Type B Positive Antibody Screen NEGATIVE Crossmatch See Detail Blood Bank Wristband ID Yes Assessment & Plan Problem List (1) Large for gestational age fetus: Status: Acute (2) Supervision of high risk , unspecified, third trimester: Status: Acute (3) Morbid obesity with BMI of 50.0-59.9, adult: Status: Acute (4) TAPVR (total anomalous pulmonary venous return): Status: Acute Assessment and plan: 1. Continue routine /post-op care 2. Labs reviewed, cbc appropriate 3. Remove dressing/Hernandez 4. Encourage to ambulate, shower 5. Encourage PO intake, breast feeding Time Spent With Patient Time: Total time spent is greater than 50% in coordination of care (as documented) at patient's floor/unit and/or counseling patient:
[2025-07-01] MEDS: ENOXAPARIN SOD INJ 40 MG/0.4 ML SYRINGE SC (08:51)
--- NOTE | 2025-07-01 09:13 | PC.LAC ---
Follow up to see if baby awake enough to do some nursing, at last visit had placed baby skin to skin with mom. At this time baby double wrapped in blanket and in arms of family member. Told mom I would give them a few more minutes and would return.
--- NOTE | 2025-07-01 09:40 | PC.LAC ---
Returned to help mom get baby to breast, at this time baby is still wrapped in family members arms, but family member states that baby is sucking on hands and looks hungry. Helped mom get baby to breast, helped with hand expression and was able to see her colostrum and baby did lick of colostrum. Baby latched and sucked for about 1 minute, then fell back asleep after a few minutes he had a bowel movement. After dad changed diaper worked to get baby back to breast, he latched and only sucked a few times and fell back asleep. Placed baby skin to skin with mom and stressed to keep baby there until he woke to eat. Mom stated that her mother and sister would be coming to visit and they would want to hold baby at that time. Explained how important skin to skin was at this time when baby was not be so active at the breast. Mom reassured me she would place him skin to skin once they left.
[2025-07-01 11:42] VITALS: BP 128/79; PULSE 71; RESP 16; TEMP 36.8; O2SAT 100
[2025-07-01] MEDS: SIMETHICONE 80 MG CHEW PO ×2 (14:16→22:06)
[2025-07-01 15:29] VITALS: BP 128/80; PULSE 80; RESP 18; TEMP 36.7; O2SAT 100
[2025-07-01 20:00] VITALS: BP 121/81; PULSE 76; RESP 16; TEMP 36.7; O2SAT 100
[2025-07-01] MEDS: IBUPROFEN TAB 400 MG TABLET 800 MG PO (20:33)
[2025-07-01] MEDS: Milk Of Magnesia Susp 30 ML UDC PO (22:07)
--- NOTE | 2025-07-02 01:02 | PC.NURSE ---
Pt called in crying and complaining of pain in her abdomen pointing it to her surgery site and pt is also complaining of shoulder pain. Pt said she does not want to take Troutman. Notify MD Bergeron of pt's complaint.
--- NOTE | 2025-07-02 01:22 | XR_ITS ---
Examination: Abdomen AP single view (2 images total Technique: AP portable supine abdomen, single view Exam date and time: 07/02/2025, 1:48 a.m. INDICATION: Abdominal pain /post induction COMPARISON: None FINDINGS: No bowel dilatation concerning for obstruction. Moderate fecal matter noted in the expected location of the cecum. There is also gas throughout the colon, most pronounced in the redundant transverse colon extending from the right lower quadrant to the left upper quadrant. There is less gaseous distention and mild stool throughout the descending colon and sigmoid colon. No free air detected. Prominent liver shadow noted, with its tip extending to the level of the right iliac crest. Lumbar levoscoliosis noted. No acute osseous abnormality. No radiodense foreign body. IMPRESSION: No evidence for bowel obstruction or free air. Moderate gaseous distention of colon.
[2025-07-02] MEDS: KETOROLAC INJ 30 MG/ML VIAL IVP ×2 (02:57→16:59)
[2025-07-02 03:09] VITALS: BP 126/79; PULSE 81; RESP 19; TEMP 36.6; O2SAT 99
[2025-07-02 05:54] LABS: Basophils # (Auto) 0.0 Thou/mm3 (0.0-0.2); Basophils % (Auto) 0 % (0-2.5); Eosinophils # (Auto) 0.1 Thou/mm3 (0.0-0.5); Eosinophils % (Auto) 0 % (0-10); Hematocrit 26.1 % (36.0-46.0); Immature Granulocytes Auto 0.05 Thou/mm3 (0.00-0.00); Lymphocytes # (Auto) 2.3 Thou/mm3 (1.0-4.8); Lymphocytes % (Auto) 20 % (10-50); Mean Corpuscular HGB Conc 30.7 g/dl (31.0-37.0); Mean Corpuscular Hemoglobin 22.3 pg (25.0-35.0); Mean Corpuscular Volume 73 fL (80-100); Monocytes # (Auto) 1.0 Thou/mm3 (0.0-0.8); Monocytes % (Auto) 9 % (0-12); Neutrophils # (Auto) 8.0 Thou/mm3 (1.8-7.7); Neutrophils % (Auto) 70 % (37-80); Nucleated Red Blood Cell # 0.00 Thou/mm3 (0.00-0.00); Nucleated Red Blood Cell % 0 /100 WBC (0); Platelet Count 343 Thou/mm3 (140-440); RDW Standard Deviation 40.3 fL (36.4-46.3); Red Blood Count 3.58 Miln/mm3 (4.00-5.20); White Blood Count 11.4 Thou/mm3 (3.6-11.0)
[2025-07-02 07:17] LABS: Hemoglobin 8.0 g/dL (12.0-16.0)
[2025-07-02 09:10] VITALS: BP 135/84; PULSE 84; RESP 18; TEMP 36.8; O2SAT 99
[2025-07-02] MEDS: FERRIC SOD GLUC INJ 125 MG in SODIUM CHLORIDE 0.9% 100 ML 110 MG IV (09:13)
[2025-07-02] MEDS: DOCUSATE SOD 100 MG CAPSULE PO (09:13)
[2025-07-02] MEDS: ENOXAPARIN SOD INJ 40 MG/0.4 ML SYRINGE SC (09:13)
--- NOTE | 2025-07-02 09:18 | ESPR_ITS ---
Subjective Subjective Interval history: The patient is a 20-year-old -0-1-1 status post primary low-transverse section for suspected LGA baby the evening of 06/30/2025. Patient delivered around 1800. She is reporting gas pain. I offered her a suppository to help increase her bowel movements and patient declines at this time. I encouraged ambulation in the hallway to help with her GI function. I will write Lovenox as her BMI is 50. Patient is tolerating a general diet. She states her bleeding is minimal. She is trying to breast-feed but is largely bottlefeeding at this time. She request discharge tomorrow. I am going to order IV iron as she is extremely anemic. Her predelivery hemoglobin was 9 post delivery hemoglobin is 8. Exam Vital Signs Temp Pulse Resp BP Pulse Ox O2 Del Method 97.9 F 81 19 126/79 99 Room Air 07/02/25 03:09 07/02/25 03:09 07/02/25 03:09 07/02/25 03:09 07/02/25 03:09 07/02/25 03:09 Narrative Exam Patient is alert and oriented x 3 in no apparent distress abdomen is obese fundus is nontender incision is clean dry and intact extremities show no significant edema or erythema. Objective Labs 07/02/25 04:36 Labs: Laboratory Results - last 24 hr 07/02/25 04:36 WBC 11.4 H RBC 3.58 L Hgb 8.0 L Hct 26.1 L MCV 73 L MCH 22.3 L MCHC 30.7 L RDW Std Deviation 40.3 Plt Count 343 Neut % (Auto) 70 Lymph % (Auto) 20 [place] % (Auto) 9 Eos % (Auto) 0 Baso % (Auto) 0 Neut # (Auto) 8.0 H Lymph # (Auto) 2.3 [place] # (Auto) 1.0 H Eos # (Auto) 0.1 Baso # (Auto) 0.0 Immature Gran # (Auto) 0.05 H Absolute Nucleated RBC 0.00 Immature Gran % 0 Nucleated RBC % 0 Assessment & Plan Problem List (1) Morbid obesity with BMI of 50.0-59.9, adult: Problem details: Lovenox Status: Acute (2) TAPVR (total anomalous pulmonary venous return): Status: Acute (3) care following delivery: Problem details: Encourage ambulation. If no flatus or increased constipation recommend a suppository. Status: Acute Time Spent With Patient Time: Total time spent is greater than 50% in coordination of care (as documented) at patient's floor/unit and/or counseling patient: Time with patient: less than 15 minutes
[2025-07-02 11:30] VITALS: BP 135/88; PULSE 69; RESP 17; TEMP 36.8; O2SAT 98
[2025-07-02] MEDS: IBUPROFEN TAB 400 MG TABLET 800 MG PO ×2 (11:59→19:55)
[2025-07-02] MEDS: SIMETHICONE 80 MG CHEW PO ×2 (14:38→19:55)
[2025-07-02 16:45] VITALS: BP 136/88; PULSE 77; RESP 19; TEMP 36.7; O2SAT 98
[2025-07-02] MEDS: Milk Of Magnesia Susp 30 ML UDC PO (16:59)
[2025-07-02 20:00] VITALS: BP 138/79; PULSE 86; RESP 19; TEMP 36.6; O2SAT 99
[2025-07-02] MEDS: HYDROcodone/APAP 5/325 TABLET 1 TAB PO (21:17)
[2025-07-03] VITALS: BP 133/79; PULSE 98; RESP 18; TEMP 36.8; O2SAT 99
[2025-07-03] MEDS: HYDROcodone/APAP 5/325 TABLET 1 TAB PO (01:32)
[2025-07-03 03:58] VITALS: BP 107/67; PULSE 79; RESP 18; TEMP 36.5; O2SAT 98
[2025-07-03] MEDS: SIMETHICONE 80 MG CHEW PO (05:20)
[2025-07-03] MEDS: IBUPROFEN TAB 400 MG TABLET 800 MG PO (05:20)
[2025-07-03 06:35] LABS: Basophils # (Auto) 0.0 Thou/mm3 (0.0-0.2); Basophils % (Auto) 0 % (0-2.5); Eosinophils # (Auto) 0.1 Thou/mm3 (0.0-0.5); Eosinophils % (Auto) 1 % (0-10); Hematocrit 26.1 % (36.0-46.0); Immature Granulocytes Auto 0.12 Thou/mm3 (0.00-0.00); Lymphocytes # (Auto) 1.9 Thou/mm3 (1.0-4.8); Lymphocytes % (Auto) 20 % (10-50); Mean Corpuscular HGB Conc 31.0 g/dl (31.0-37.0); Mean Corpuscular Hemoglobin 22.4 pg (25.0-35.0); Mean Corpuscular Volume 72 fL (80-100); Monocytes # (Auto) 0.7 Thou/mm3 (0.0-0.8); Monocytes % (Auto) 7 % (0-12); Neutrophils # (Auto) 6.6 Thou/mm3 (1.8-7.7); Neutrophils % (Auto) 70 % (37-80); Nucleated Red Blood Cell # 0.02 Thou/mm3 (0.00-0.00); Nucleated Red Blood Cell % 0 /100 WBC (0); Platelet Count 374 Thou/mm3 (140-440); RDW Standard Deviation 40.7 fL (36.4-46.3); Red Blood Count 3.62 Miln/mm3 (4.00-5.20); White Blood Count 9.5 Thou/mm3 (3.6-11.0)
[2025-07-03 06:58] LABS: Hemoglobin 8.1 g/dL (12.0-16.0)
--- NOTE | 2025-07-03 07:57 | ESPR_ITS ---
Subjective Subjective Interval history: Patient is a 20-year-old -0-1-1 status post primary 06/30/2025 at around [address] Quezada. Patient stayed an extra day as she had a lot of gas pain yesterday. This morning she is resting comfortably. She states she is passed a lot of gas and she feels ready to go home. She wants to make sure I write stool softeners when she goes home. She is breast and bottlefeeding. Patient was anemic her preop hemoglobin was 9 I have checked it 3 times since surgery and it is remained stable at 8.1. She has been given IV iron every day and she will have 1 more dose before she goes home. Discharge instructions were given. Patient is voiding, passing flatus ,tolerating a general diet.ambulating. and breast and bottlefeeding. Her lochia is minimal Exam Vital Signs Temp Pulse Resp BP Pulse Ox O2 Del Method 97.7 F 79 18 107/67 98 Room Air 07/03/25 03:58 07/03/25 03:58 07/03/25 03:58 07/03/25 03:58 07/03/25 03:58 07/03/25 03:58 Narrative Exam Patient is alert and orient x 3 in no apparent distress fundus is firm abdomen is obese incision clean dry intact extremities show no significant edema or erythema Objective Labs 07/03/25 04:38 Labs: Laboratory Results - last 24 hr 06/29/25 07/03/25 17:15 04:38 WBC 9.5 RBC 3.62 L Hgb 8.1 L Hct 26.1 L MCV 72 L MCH 22.4 L MCHC 31.0 RDW Std Deviation 40.7 Plt Count 374 D Neut % (Auto) 70 Lymph % (Auto) 20 [place] % (Auto) 7 Eos % (Auto) 1 Baso % (Auto) 0 Neut # (Auto) 6.6 Lymph # (Auto) 1.9 [place] # (Auto) 0.7 Eos # (Auto) 0.1 Baso # (Auto) 0.0 Immature Gran # (Auto) 0.12 H Absolute Nucleated RBC 0.02 H Immature Gran % 1 H Nucleated RBC % 0 Crossmatch See Detail Assessment & Plan Problem List (1) Morbid obesity with BMI of 50.0-59.9, adult: Problem details: Lovenox Status: Acute (2) TAPVR (total anomalous pulmonary venous return): Problem details: Patient to go to the ER with any chest pain shortness of breath or difficulty breathing Status: Acute (3) care following delivery: Problem details: Encourage ambulation. Stool softeners on discharge. Discharge home today. Discharge instructions given. Status: Acute Time Spent With Patient Time: Total time spent is greater than 50% in coordination of care (as documented) at patient's floor/unit and/or counseling patient: Time with patient: less than 15 minutes
--- NOTE | 2025-07-03 08:00 | ESDS_ITS ---
DS: Providers Provider Date of admission: 06/29/25 15:26 Primary care physician: Physician No Primary/Family Admitting Provider: Emily White MD Attending Provider on Admission: Javier Bergeron MD Consults: 06/30/25 19:31 Referral Routine Comment: Attending Provider on DC: Ays[facility] ([facility]) Discharging Provider: Aysha Quezada MD ([facility]) Anticipated date of discharge: 07/03/25 DS: Diagnosis Discharge Diagnosis (1) care following delivery: Status: Acute Assessment & Plan: Discharge instructions given. Follow-up at the clinic in 1 to 2 weeks for a wound check. (2) TAPVR (total anomalous pulmonary venous return): Status: Acute Assessment & Plan: Patient to come to the ER for chest pain, shortness of breath (3) Morbid obesity with BMI of 50.0-59.9, adult: Status: Acute Assessment & Plan: Home on Lovenox (4) Anemia affecting : Status: Acute Assessment & Plan: Hemoglobin stable at 9. Status post 3 doses of IV iron. Home on vitamins and iron. Problem List Completed Was Problem List Reviewed/Reconciled?: Yes Summary/Hosp Course Brief History: Patient is a 20-year-old G1, P0 who is being induced for a suspected LGA baby. She is 39-4/7 weeks today. She had Cervidil x 1 and is kate irregularly and rating her pain a 6 out of 10. The father the baby is at bedside. The patient is difficult to monitor due to maternal obesity and has a Ivette on which was not picking up heart tones well. Patient's BMI is 50. The baby is suspected 9 pounds and is in the 97th percentile with a large abdominal circumference. It was recommended by the [facility] that we pursue induction of labor. A pelvic exam was performed at 1715 and patient cervix is 1 cm/50/-3. Pat ient's abdominal girth is large and baby is high in the pelvis. I discussed risks and benefits of continuing to labor versus a primary . I discussed the risk of a shoulder dystocia with both the patient and the father the baby. I discussed the fact that the baby is measuring 97th percentile, over 9 pounds and seems to have a larger abdominal circumference than the head circumference and this could lead to a shoulder dystocia. I discussed shoulder dystocia's are difficult to predict and are an absolute emergency. I discussed the only way to avoid a shoulder dystocia would be a . As the patient is difficult to monitor especially with a Ivette external monitor and I cannot place internal monitors as she is early in labor and morbidly obese I think a C- section is safer for both the mother and baby. In addition, patient had a TAPVR repair when she was a baby. We discussed it might be less stress on her heart to have a primary versus is pushing a baby out for up to 2 to 3 hours. We discussed the risks of the including the risk of more bleeding and the risk of further C-sections in the future. We discussed the fact that a C- section is harder to recover from then a vaginal delivery. The patient and the father the baby were allowed to ask any questions. After a short discussion, the patient opts for a primary low-transverse section. She understands the risks of surgery including the risk of bleeding, infection, blood transfusion, damage to bowel,bladder, blood vessels ,other organs and prolonged hospital stay and further surgery should any complications occur. She understands she will most likely need a with every in the future. All questions were answered all consents were signed. See H&P for further details Hospital course: Patient underwent an uncomplicated primary low-transverse section around 1800 on 06/30/25. See op report for further details Her postoperative course was uncomplicated. As patient's preop hemoglobin is only 9, her hemoglobin was checked 3 days in a row and remained stable at 8.1. Patient was given IV iron for total of 3 doses. She was discharged home postope rative day #3 in stable condition. Discharge instructions included no heavy lifting intercourse tampons or douching for 6 weeks. Patient was discharged home with ibuprofen and [place]. She was discharged home with stool softeners and Lovenox. She was to follow-up in clinic in 1 to 2 weeks for a wound check. Peripartum Data Delivery Method: Low Transverse Episiotomy Description: None Procedures: Procedures Operation Date: 06/30/25 17:45 Actual Procedure Side Surgeon p in OB Not Applicable Aysha Quezada ([facility])MD complications: none Status at Discharge Functional status at discharge: independent ambulation Overall status at discharge: patient is progressing back to baseline Time Spent with Patient Time attestation: Total time spent providing and/or coordinating discharge services: Time spent: Less than 30 minutes Specific discharge activities: No heavy lifting, intercourse, tampons, douching or swimming or exercise x 6 weeks Exam Vital Signs Temp Pulse Resp BP Pulse Ox O2 Del Method 97.7 F 79 18 107/67 98 Room Air 07/03/25 03:58 07/03/25 03:58 07/03/25 03:58 07/03/25 03:58 07/03/25 03:58 07/03/25 03:58 Narrative Exam Patient is alert and orient x 3 in no apparent distress. Abdomen is obese fundus is firm incisions clean dry and intact. Extremities show no significant edema or erythema Discharge Plan Plan Patient Disposition: HOME (Self Care) Disposition Comment: Stable Patient condition on transfer: Stable Prescriptions/Referrals Prescriptions/Med Rec: New acetaminophen 325 mg Tablet 650 mg PO Q6HR PRN (Reason: Patient rated pain of 3) Qty: 60 0RF hydrocodone-acetaminophen 5-325 mg Tablet 2 tab PO Q6HR MDD 4 PRN (Reason: Patient rated pain 9 to 10) Qty: 25 0RF ibuprofen 400 mg Tablet 800 mg PO Q8HR PRN (Reason: Pain Scale 4-6 (Moderate) Qty: 60 0RF docusate sodium 100 mg Capsule 100 mg PO QDAY Qty: 60 0RF enoxaparin 40 mg/0.4 mL Syringe 40 mg SCi QDAY Qty: 4 0RF Continued PNV [id number] 90 mg iron- 1 mg-200 mg capsule 1 cap PO QDAY Discontinued aspirin [Adult Low Dose Aspirin] 81 mg tablet,delayed release (DR/EC) 81 mg PO QDAY Referrals: No Primary/Family,Physician [Primary Care Provider] Patient/Caregiver Discharge Instructions Discharge Activity: activity as tolerated Other Discharge Activity Instructions:: No heavy lifting, intercourse, tampons, douching, swimming pools, bathtubs or exercise x 6 weeks. Follow-up in 1 to 2 weeks. Other Discharge Diet Instructions: General diet as tolerated Education Materials: After Delivery [place] Concerns, Anemia During , : Caring for Yourself, C Section Dc, Feel Healthy After Print Language: Mongolian Activity Restrictions/Additional Instructions: Come to the ER for chest pain or shortness of breath, heavy vaginal bleeding, severe depression. Stand Alone Forms: [employer]iki Award Info., Patient Portal Info Letter Discharge Order Discharge Orders: Discharge (Routine); Ordered 07/03/25 Ordered By: Aysha Quezada ([facility]) Planned Discharge Date 07/03/25 (4) Anemia affecting Qualifiers: Trimester: third trimester Qualified Code(s): O99.013 - Anemia complicating , third trimester
[2025-07-03] MEDS: DOCUSATE SOD 100 MG CAPSULE PO (08:52)
[2025-07-03] MEDS: ENOXAPARIN SOD INJ 40 MG/0.4 ML SYRINGE SC (08:52)
--- NOTE | 2025-07-03 09:30 | PC.LAC ---
Assisted mom with using SNS with formula to assure baby was getting a good feed, as he has lost weight. Baby stayed at breast for about 12 minutes and tolerated 24 ml of formula. Use of nipple shield was needed to get baby to stay at the breast as well as use of formula to get flow going for baby. after he started getting flow he settled down and was able to nurse for a while.
--- NOTE | 2025-07-03 11:05 | PC.LAC ---
Followed up with mom after did did some pumping, mom able to pump 10 mls colostrum, combined and stated she did 20 minutes. Explained that she would need to pump every 2- 3 hours in order for her to be able to have milk to provide for baby once she went home. she stated that most likely she would be doing strictly pumping when she went home. explained the pros and cons of exclusively pumping. parents understood
[2025-07-03 12:00] VITALS: BP 130/77; PULSE 69; RESP 19; TEMP 36.5; O2SAT 98
[2025-07-03] MEDS: HYDROcodone/APAP 5/325 TABLET 2 TAB PO (12:14)
== END 2025-07-03 15:30 | disposition home or self-care (01) | DRG 540 ==
LOC: S4SX 06-30 12:43 → S4NX 06-30 17:55
PROVIDERS: Obstetrics & Gynecology; Admitting Provider Obstetrics & Gynecology; Visit Provider Obstetrics & Gynecology
PROC: (CPT 59514; principal; 2025-06-30 17:30)
DX: O36.63X0 Maternal care for excessive fetal growth, third trimester, not applicable or unspecified (principal); O99.214 Obesity complicating childbirth; Z37.0 Single live birth; Z3A.39 39 weeks gestation of pregnancy; O99.02 Anemia complicating childbirth; E66.01 Morbid (severe) obesity due to excess calories; Q26.2 Total anomalous pulmonary venous connection; Q51.3 Bicornate uterus; O34.03 Maternal care for unspecified congenital malformation of uterus, third trimester
CPT/HCPCS: 36415; 74018; 76805; 80307; 85025; 86780; 86850; 86900; 86901; 86923; 93306; A4217; A4314; A4649; J0131; J0689; J1100; J1650; J1885; J2371; J2405; J2590; J2916; J3490; J7050; J7120; A9270

== ENCOUNTER 2025-07-07 02:56 | Emergency (ER) | payer MEDICAID, SELFPAY ==
[2025-07-07 02:58] VITALS: BMI 43.7
[2025-07-07 03:08] VITALS: BP 143/87; PULSE 74; RESP 18; TEMP 36.6; O2SAT 99
--- NOTE | 2025-07-07 03:11 | PD.EDRME ---
Rapid Medical Screening Exam RME Arrival date/time: 07/07/25 02:56 This is a case of 30-year-old female who came into the emergency room due to generalized abdominal pain patient had a section last week and noted that the surgical site is leaking with some blood persistence of the symptoms this patient decided to start consult in the emergency room Chief Complaint: General Adult/Misc Complain Time Seen by Provider: 07/07/25 03:10 Vital signs: Vital Signs Temperature 97.8 F 07/07/25 03:08 Pulse Rate 74 07/07/25 03:08 Respiratory Rate 18 07/07/25 03:08 Blood Pressure 143/87 H 07/07/25 03:08 Pulse Oximetry (%) 99 07/07/25 03:08 Oxygen Delivery Method Room Air 07/07/25 03:08 Exam: Generalized tenderness no guarding no rebound no rigidity on abdominal Clinical Impression: Abdominal pain
[2025-07-07 03:29] LABS: Collection Type, Urine Clean Catch
[2025-07-07 03:38] LABS: Bacteria,Urine Rare; Basophils # (Auto) 0.1 Thou/mm3 (0.0-0.2); Basophils % (Auto) 1 % (0-2.5); Bilirubin,Urine Negative (Negative); Blood,Urine 3+ (Negative); Clarity,Urine Clear (Clear/Hazy); Color,Urine Colorless (Lt Yel-Yel); Eosinophils # (Auto) 0.3 Thou/mm3 (0.0-0.5); Eosinophils % (Auto) 3 % (0-10); Glucose, Urine Negative (Negative); HCG Qualitative,Urine Positive; Hematocrit 29.5 % (36.0-46.0); Hemoglobin 9.0 g/dL (12.0-16.0); Immature Granulocytes Auto 0.07 Thou/mm3 (0.00-0.00); Ketones,Urine Negative (Negative); Leukocyte Esterase,Urine Positive (Negative); Lymphocytes # (Auto) 2.0 Thou/mm3 (1.0-4.8); Lymphocytes % (Auto) 24 % (10-50); Mean Corpuscular HGB Conc 30.5 g/dl (31.0-37.0); Mean Corpuscular Hemoglobin 22.6 pg (25.0-35.0); Mean Corpuscular Volume 74 fL (80-100); Monocytes # (Auto) 0.6 Thou/mm3 (0.0-0.8); Monocytes % (Auto) 7 % (0-12); Neutrophils # (Auto) 5.3 Thou/mm3 (1.8-7.7); Neutrophils % (Auto) 64 % (37-80); Nitrite,Urine Negative (Negative); Nucleated Red Blood Cell # 0.00 Thou/mm3 (0.00-0.00); Nucleated Red Blood Cell % 0 /100 WBC (0); PH,Urine 6.0 (5.0-7.0); Platelet Count 412 Thou/mm3 (140-440); Protein,Urine Trace (Neg - Trace); RBC,Urine 73 /hpf (0-3); RDW Standard Deviation 42.2 fL (36.4-46.3); Red Blood Count 3.99 Miln/mm3 (4.00-5.20); Specific Gravity,Urine 1.011 (1.001-1.035); Squamous Epithelial Cell,Urine 4 /hpf (0-5); Urobilinogen,Urine Negative mg/dL (0.0-1.0); WBC,Urine 8 /hpf (0-5); White Blood Count 8.3 Thou/mm3 (3.6-11.0)
[2025-07-07 03:58] LABS: Alanine Aminotransferase 94 U/L (10-49); Albumin, Serum 4.2 gm/dL (3.5-5.0); Albumin/Globulin Ratio 1.6 (1.2-2.2); Alkaline Phosphatase 208 U/L (46-116); Anion Gap 10 (7-16); Aspartate Amino Transferase 54 U/L (0-34); BUN/Creatinine Ratio 17 Ratio (12-20); Bilirubin,Total 0.2 mg/dL (0.3-1.2); Blood Urea Nitrogen 10 mg/dL (9-23); Calcium 8.9 mg/dL (8.3-10.6); Calcium (Corrected) 8.9 mg/dL (8.5-10.1); Carbon Dioxide 25.4 mMol/L (20.0-31.0); Chloride 105 mMol/L (98-107); Creatinine (Component) 0.6 mg/dL (0.6-1.3); Estimated Creatinine Clearance 185.2 mL/min (>60); Globulin 2.7 gm/dL (2.3-3.5); Glucose 83 mg/dL (74-106); Lipase 52 U/L (12-53); Osmolality,Calculated 277 (275-295); Potassium 3.7 mMol/L (3.4-5.1); Sodium 140 mMol/L (136-145); Total Protein 6.9 gm/dL (5.7-8.2); eGFR > 60 See Note
--- NOTE | 2025-07-07 03:59 | PD.EDADULT ---
ED General RME/HPI General Chief complaint: General Adult/Misc Complain Stated complaint: surgical wound complication Time Seen by Provider: 07/07/25 03:10 Arrival date/time: 07/07/25 02:56 RME / HPI RME / HPI narrative: 07/07/25 02:56 This is a case of 30-year-old female who came into the emergency room due to generalized abdominal pain patient had a section last week and noted that the surgical site is leaking with some blood persistence of the symptoms this patient decided to start consult in the emergency room Dr. Coleman?s Main ED Evaluation: 20yo female who is s/p 1 week [employer] presents with stinging sensation along the lateral aspect of the horizontally oriented incision on the right side. No fever, vomiting, or dysuria. Related Data Home Medications ?Medication ?Instructions ?Recorded ?Confirmed vitamins no.102-iron 90 1 cap PO QDAY 04/22/25 06/29/25 mg-folate 1 mg-dha 200 mg capsule Previous Rx's ?Medication ?Instructions ?Recorded acetaminophen 325 mg tablet 650 mg (2 x 325 mg) PO Q6HR PRN 07/03/25 Patient rated pain of 3 #60 tabs docusate sodium 100 mg capsule 100 mg PO QDAY #60 caps 07/03/25 enoxaparin 40 mg/0.4 mL 40 mg (0.4 mL) SCi QDAY #4 mL 07/03/25 subcutaneous syringe hydrocodone 5 mg-acetaminophen 325 2 tab PO Q6HR PRN Patient rated 07/03/25 mg tablet pain 9 to 10 #25 tabs ibuprofen 400 mg tablet 800 mg (2 x 400 mg) PO Q8HR PRN 07/03/25 Pain Scale 4-6 (Moderate #60 tabs bacitracin 500 unit/gram topical 1 applic topical TID #14 grams 07/07/25 ointment Allergies Allergy/AdvReac Type Severity Reaction Status Date / Time No Known Allergies Allergy Verified 07/07/25 03:03 Review of Systems Review of Systems Systems Reviewed: All systems reviewed, normal except as documented Past Medical History Past Medical History NEUROLOGIC: Negative Neurological Disorders, Cerebrovascular Accident, Transient Ischemic Attacks (TIA), Dementia, Alzheimer's Disease or Seizures CARDIAC: Positive Cardiac Disorders (TAPVR SX at 6weeks old) and Congenital Heart Disease; Negative Myocardial Infarction, Heart Murmur, Hypercholesterolemia, Congestive Heart Failure, Valvular Heart Disease, Edema, Cellulitis, Hypertension or Varicose Veins RESPIRATORY: Negative Chronic Obstructive Pulmonary Disease (COPD), Asthma, Bronchitis, Emphysema, Pneumonia, Tuberculosis, Sleep Apnea, Cough, Sputum Production, Wheezing, Chest Deformities, Smoking, Smoking Cessation Counseling, Smoking Exposure or Tobacco Use GASTROINTESTINAL: Positive Gastrointestinal Disorders and Obesity; Negative Liver Cancer, Hepatitis, Cirrhosis, Pancreatic Cancer, Pancreatitis, Celiac Disease, Gall Bladder Disease, Crohn's Disease, Obstructive Bowel or Hiatal Hernia GENITOURINARY: Negative Genitourinary Disorders, Renal Disease, Kidney Stones, Polycystic Kidney Disease, Neurogenic Bladder or Inguinal Hernia REPRODUCTIVE: Positive Previous Pregnancies (2022); Negative Endometriosis, Genital Herpes, Gonorrhea, Pelvic Inflammatory Disease, Syphilis or Uterine Prolapse MUSCULOSKELETAL: Positive Scoliosis and Fractures (Left wrist, Left thumb); Negative Muscular Dystrophy, Myasthenia Gravis, Marfan's Syndrome, Bone Cancer or Gout ENT: Negative Cataracts, Glaucoma, Blind or Retinal Detachment ENDOCRINE: Negative Endocrine Disorders, Diabetes Mellitus Type 1, Diabetes Mellitus Type 2 or Syndrome of Inappropriate Antidiuretic Hormone (SIADH) HEMATOLOGIC: Positive Blood Disorders and Anemia; Negative Leukemia or Hemophilia PSYCHO/SOCIAL: Negative Schizophrenia, Recreational Drug Use, Depression, Anxiety or Behavior Problems OTHER HISTORY: Negative Hospitalization, Autoimmune Disease, Down Syndrome, Autism, Blood Transfusions, Blood Transfusion Reaction, Anesthesia Reactions, Organ Transplant, Radiation Therapy, MRSA, VRSA, Vancomycin-Resistant Enterococci, Human Immunodeficiency Virus (HIV), Chicken Pox, Measles, Mumps, Rubella ([place]ian Measles), Pertussis, Clostridium Difficile, Hepatitis A, Hepatitis B, Hepatitis C or Cancer Family History FAMILY HISTORY: Negative Family Psychiatric Problems, Family Respiratory Disorders, Family Cardiac Disorders, Family Gastrointestinal Problems, Family Cancer, Family Surgery or Family Anesthesia Reaction Surgical History SURGICAL: Positive Open Heart Surgery (TAPVR at 6weeks old.) and Section; Negative Pacemaker, Endocrine Surgery, Ear Surgery, Abdominal Surgery, Nephrectomy, Joint Replacement, Neurologic Surgery, Lumpectomy or Organ Transplant Social History SMOKING STATUS: Never smoker SECOND HAND EXPOSURE: No ED Exam Narrative Physical exam: GENERAL APPEARANCE: alert and oriented x 4, nontoxic, resting comfortably in the gurney, well-developed, well-nourished, no acute distress VITALS: All vitals were reviewed and the pulse ox is 99% on room air, which is normal according to my interpretation. HEENT: Normocephalic, atraumatic; pupils equal, round, reactive to light; EOMI; mucous membranes pink, moist; oropharynx clear NECK: Supple LUNGS: CTABL; no wheezes, no rales, no rhonchi HEART: Regular rate, regular rhythm; normal S1, S2; no murmurs ABDOMEN: non distended; soft, no tenderness EXTREMITIES: atraumatic; no edema NEUROLOGIC: awake; alert and oriented x4; cranial nerves II-XII grossly intact; no focal sensory or motor deficits PSYCHIATRIC: appropriate mood and affect SKIN: warm, dry, normal color; no rashes; horizontal incision at the lower abdomen with slight superficial fissuring at the lateral aspect of the wound, not full thickness Course Quality Measures none Orders Category Date Time Status CT abdomen pelvis wo con Stat Exams 07/07/25 03:11 Stop Req CBC Stat Lab 07/07/25 03:21 Completed Comprehensive Metabolic Panel Stat Lab 07/07/25 03:21 Completed HCG Qualitative,Urine Stat Lab 07/07/25 03:21 Completed Lipase Stat Lab 07/07/25 03:21 Completed Urinalysis Stat Lab 07/07/25 03:21 Completed Vital Signs Vital signs: Vital Signs Temperature 97.8 F 07/07/25 03:08 Pulse Rate 74 07/07/25 03:08 Respiratory Rate 18 07/07/25 03:08 Blood Pressure 143/87 H 07/07/25 03:08 Pulse Oximetry (%) 99 07/07/25 03:08 Oxygen Delivery Method Room Air 07/07/25 03:08 Discharge Plan Plan Patient Disposition: HOME (Self Care) Discharge Disposition comment: stable Prescriptions/Referrals Prescriptions/Med Rec: New bacitracin 500 unit/gram ointment 1 applic topical TID Qty: 14 0RF No Action PNV [id number] 90 mg iron- 1 mg-200 mg capsule 1 cap PO QDAY acetaminophen 325 mg Tablet 650 mg PO Q6HR PRN (Reason: Patient rated pain of 3) Qty: 60 0RF hydrocodone-acetaminophen 5-325 mg Tablet 2 tab PO Q6HR MDD 4 PRN (Reason: Patient rated pain 9 to 10) Qty: 25 0RF ibuprofen 400 mg Tablet 800 mg PO Q8HR PRN (Reason: Pain Scale 4-6 (Moderate) Qty: 60 0RF docusate sodium 100 mg Capsule 100 mg PO QDAY Qty: 60 0RF enoxaparin 40 mg/0.4 mL Syringe 40 mg SCi QDAY Qty: 4 0RF Referrals: Josef Villarreal PA-C [Primary Care Provider] - In 1 week Problem List Clinical Impression: care following delivery Impression comment: care Patient/Caregiver Discharge Instructions Discharge Activity: activity as tolerated Other Activity Instructions:: Avoid any heavy lifting pushing pulling etc. Diet Instructions: Regular diet Education Materials: After a , C Section Dc Additional Instructions: Avoid any heavy lifting pushing pulling etc. Antibiotic ointment applied to affected area twice daily. Avoid friction in same region by wearing loosefitting close. Follow-up with [facility] physician as scheduled and return if worsening. Print Language: [place] Stand Alone Forms: Kiki Award Info., Patient Portal Info Letter MDM Narrative MDM hospital course (for use when minimal MDM required): Scribe Attestation: 07/07/25 - Suri Mendoza am scribing for and in the presence of Dr. Coleman. 20yo female who is s/p 1 week [employer] presents with stinging sensation along the lateral aspect of the horizontally oriented incision on the right side. No fever, vomiting, or dysuria. Please see PE findings. Lab markers are at baseline, including mildly elevated LFTs. UA without signs of infection. The horizontal incision at the lower abdomen with slight superficial fissuring at the lateral aspect of the wound represents a minor fissure. Will apply ointment and dressing to the postop wound. After extended period of observation, patient is considered stable for discharge. Will re-assure the patient and recommend close follow-up with OB. Clinical Information Provided by: patient Medical Records reviewed [facility] (Per chart review, patient had a done here on 06/30/[address] Quezada.) Meds/Rx considered, not ordered None Labs/Rad/Tests considered, not ordered None Chronic Illness/Social Conditions which may negatively complicate care or outcome(s)-explain: None or not applicable Labs Labs: interpreted by me Imaging Imaging interpretation: none Medication Administration(s) see above, if any Diagnosis Differential Diagnosis ED Complaint MDM: wound dehiscence, wound fissure, postop complication
[2025-07-07 04:35] VITALS: BP 140/88; PULSE 65; RESP 18; TEMP 36.5; O2SAT 97
== END 2025-07-07 04:35 | disposition home or self-care (01) ==
PROVIDERS: Nurse Practitioner Family; Emergency Provider Emergency Medicine; PCP Physician Assistant
DX: Z39.2 Encounter for routine postpartum follow-up (principal)
CPT/HCPCS: 36415; 80053; 81001; 81025; 83690; 85025; 99282

== ENCOUNTER → 2025-07-18 | Outpatient (CLI) | payer MEDICAID, SELFPAY | END | disposition home or self-care (01) | PROVIDERS: PCP Nurse Practitioner Family; Referring Provider Nurse Practitioner Family; Visit Provider Surgery | DX: T81.89XA Other complications of procedures, not elsewhere classified, initial encounter (principal); S31.109A Unspecified open wound of abdominal wall, unspecified quadrant without penetration into peritoneal cavity, initial encounter; X58.XXXA Exposure to other specified factors, initial encounter; O90.89 Other complications of the puerperium, not elsewhere classified | CPT/HCPCS: 97597; 99213; A9270; G0463 ==